=== PATIENT | female | born 1985 | race Caucasian/White ===

== ENCOUNTER 2019-12-08 08:11 | Emergency (ER) | payer OTHER, SELFPAY ==
--- NOTE | 2019-12-08 08:44 | ED.GENADULT ---
HPI - General Adult General Chief complaint: Upper Respiratory Infection Stated complaint: Ear/Nose/Throat/Congestion Time Seen by Provider: 12/08/19 08:59 Source: patient Mode of arrival: ambulatory Limitations: no limitations History of Present Illness HPI narrative: 34-year-old female patient presents to the [facility] with complaints of cold symptoms for the past 8-day with complaints of sore throat. Patient states she is also had a lot of nasal congestion, runny nose, some ear pain. Patient states she has had a slight cough but denies any chest pain or shortness of breath. Denies any abdominal pain, nausea, vomiting or diarrhea. Patient states that she is an active smoker. Denies getting a flu shot this year. Patient denies any or breast-feeding stating that her tubes are tied. Patient states she has been taking NyQuil for symptoms but denies taking anything during the day. Related Data Home Medications Medication Instructions Recorded Confirmed No Home Medications 12/08/19 12/08/19 Allergies Allergy/AdvReac Type Severity Reaction Status Date / Time No Known Allergies Allergy Verified 12/08/19 09:02 Review of Systems Review of Systems: Narrative: CONSTITUTIONAL: Denies fever, chills, or sweats. EYES: Denies visual changes, redness, or discharge. ENT: Positive rhinorrhea, congestion, sore throat, and bilateral otalgia. CARDIOVASCULAR: Denies chest pain, palpitations, or edema. RESPIRATORY: Positive cough, denies dyspnea. GASTROINTESTINAL: Denies abdominal pain, nausea, vomiting, or diarrhea. GENITOURINARY: Denies dysuria or hematuria. SKIN: Denies rash or itching. MUSCULOSKELETAL: Denies back pain, joint pain, or myalgia. NEUROLOGIC: Denies headache, numbness, or weakness. PSYCHIATRIC: Denies anxiety or depression. [facility] Past Medical History Medical History Glaucoma Strep pharyngitis Social History Social History Smoking packs per day: 0.5 Smoking cigarettes per day: 10.0 Years smoked: 15 Smoking pack-years: 7.50 Comments At the time of my signature I agree with nursing past medical history, surgical, social, and family history. There is no relevant family history pertinent to the presenting complaint. Exam Narrative: Exam Narrative: GENERAL: Well-appearing, well-nourished, and in no acute distress. HEAD: Normocephalic, atraumatic. No tenderness noted to frontal maxillary sinuses on palpation. EYES: PERRLA and EOMI. ENT: Nares with erythema and edema noted to the right nare, no rhinorrhea or epistaxis. Mucous membranes moist. Posterior pharynx with slight erythema but no tonsil enlargement no exudates or lesions present. A little bit of postnasal drip noted to the posterior pharynx. NECK: Supple. No lymphadenopathy CHEST: Clear to auscultation. No respiratory distress. Patient able talk in clear complete sentences. No tripoding noted. HEART: Regular rate and rhythm. No murmur heard. Normal peripheral pulses. ABDOMEN: Soft, nontender, nondistended, normal active bowel sounds. EXTREMITIES: Normal range of motion. No edema. SKIN: Warm, dry, no rash. NEURO: No focal deficits. Alert and oriented x3. Course Reevaluation(s) Reevaluation #1: Notify patient that she is negative today for her strep. Discussed with patient this is most likely sinus drainage is causing her symptoms and she can do warm salt water gargles, hot tea and honey and a humidifier in her room at night. Patient states that she is on glaucoma medication discussed with patient I would not recommend any antihistamines due to the fact that it can actually make the glaucoma worse however she could do something such as possibly Flonase has a little bit of a steroid in it to help with the nasal congestion but I would asked the pharmacist and she might be able to take some Coricidin to help with the symptoms but again I
[2019-12-08 08:52] VITALS: BP 120/76; PULSE 90; RESP 16; TEMP 36.8; O2SAT 99
== END 2019-12-08 09:22 | disposition home or self-care (01) ==
PROVIDERS: Emergency Provider Nurse Practitioner Family
DX: J06.9 Acute upper respiratory infection, unspecified (principal); R05 Cough; J02.9 Acute pharyngitis, unspecified; F17.210 Nicotine dependence, cigarettes, uncomplicated; H40.9 Unspecified glaucoma
CPT/HCPCS: 87081; 87880; 99213; G0463

== ENCOUNTER 2023-12-30 12:28 | Emergency (ER) | payer BC, SELFPAY ==
[2023-12-30 12:36] VITALS: BP 156/93; PULSE 70; RESP 20; TEMP 36.4; O2SAT 100
--- NOTE | 2023-12-30 13:23 | ED.HA ---
HPI - Headache General Chief Complaint: Headache Stated Complaint: hp/headaches Time Seen by Provider: 12/30/23 13:24 Source: patient, RN notes reviewed and old records reviewed Mode of arrival: ambulatory Limitations: no limitations History of Present Illness HPI Narrative: 38 year old female who presents to [facility] accompanied by spouse with complaints of headache since last week that won't go away despite taking Tylenol and Ibuprofen, will lessen after medication but never resolves. Patient states school nurse took her blood pressure today and was 150/98. She reports that her PCP was unable to see her today and told her to go to urgent care or ED. She reports that PCP office stated that they can see here on . Patient denies any nausea or vomiting or any dizziness, denies any fevers, muscle pain or any muscle or limb weakness. Patient reports that she has recently bought blood pressure monitor and it has been elevated at home also. MD elicited complaint: headache and other (blood pressure elevation) Onset (ago): week(s) (1) Pain scale (0-10): 6 Treatments prior to arrival: acetaminophen and ibuprofen Related Data Home Medications Medication Instructions Recorded Confirmed latanoprost 0.005 % eye drops 1 drp EACH EYE HS 12/30/23 12/30/23 pantoprazole 40 mg tablet,delayed 40 mg PO DAILY 12/30/23 12/30/23 release Allergies Allergy/AdvReac Type Severity Reaction Status Date / Time No Known Allergies Allergy Verified 12/08/19 09:02 Review of Systems Review of Systems: CONSTITUTIONAL: Denies fever, chills, or sweats. EYES: Denies visual changes, redness, or discharge. ENT: Denies rhinorrhea, congestion, sore throat, or otalgia. CARDIOVASCULAR: Denies chest pain, palpitations, or edema. RESPIRATORY: Denies cough or dyspnea. GASTROINTESTINAL: Denies abdominal pain, nausea, vomiting, or diarrhea. GENITOURINARY: Denies dysuria or hematuria. SKIN: Denies rash or itching. MUSCULOSKELETAL: Denies back pain, joint pain, or myalgia. NEUROLOGIC: Reports headache for one week, denies any numbness, or weakness. PSYCHIATRIC: Denies anxiety or depression. All systems reviewed & are unremarkable except as noted in HPI and below PMFSH Past Medical History Medical History (Updated 12/31/23 @ 12:59 by Sara Blackmon NP) Glaucoma Strep pharyngitis Surgical History Surgical History (Updated 12/31/23 @ 13:00 by Sara Blackmon NP) H/O tubal ligation Previous section x3 Status post left foot surgery Social History Social History (Updated 12/31/23 @ 13:02 by Sara Blackmon NP) Smoking packs per day: 0.5 Smoking cigarettes per day: 10.0 Years smoked: 15 Smoking pack-years: 7.50 Alcohol intake: current Alcohol use details: social Substance use type: does not use Living arrangements: with family Gender identity (if verbalized by the patient): Female Comments At time of signature, agree with nursing past medical, surgical, social and family history. There is no relevant family history pertinent to the presenting complaint Exam Narrative: GENERAL: Well-appearing, well-nourished, obese,and in no acute distress. HEAD: Normocephalic, atraumatic. EYES: PERRLA and EOMI. ENT: Nares clear, no rhinorrhea or epistaxis. Mucous membranes moist.TM's normal, throat pink with no swelling or pain. NECK: Supple. no lymphadenopathy CHEST: Clear to auscultation. No respiratory distress. no cough noted SAO2 100% on room air HEART: Regular rate and rhythm. No murmur heard. Normal peripheral pulses. ABDOMEN: Soft, nontender, nondistended, normal active bowel sounds. EXTREMITIES: Normal range of motion. No edema. SKIN: Warm, dry, no rash. NEURO: No focal deficits. Alert and oriented x3.headache pain for one week, cranial nerves intact with no deficit, no limb weakness or any stated dizziness reported. Course Course Emergency Course: Patient is aware of diagnosis, understands and agr
== END 2023-12-30 13:51 | disposition home or self-care (01) ==
PROVIDERS: Emergency Provider Registered Nurse
DX: R51.9 Headache, unspecified (principal); I10 Essential (primary) hypertension; H40.9 Unspecified glaucoma
CPT/HCPCS: 99203; G0463

== ENCOUNTER 2024-07-06 18:24 | Emergency (ER) | payer BC, OTHER, SELFPAY ==
--- NOTE | ~2024-07-06 | XR_ITS ---
EXAMINATION: XR foot RT min 3V DATE: 07/06/2024 19:06 INDICATION: Right foot pain TECHNIQUE: Dorsoplantar, two oblique and lateral views of the right foot were obtained. COMPARISON: None. FINDINGS: Alignment is normal. No fracture. Joint spaces are normal. No cortical erosions or periosteal reactio n. Soft tissues are unremarkable. IMPRESSION: 1. Negative right foot radiographs. Reviewed, dictated and finalized at location A.
[2024-07-06 18:40] VITALS: BP 133/76; PULSE 83; RESP 18; TEMP 36.6; O2SAT 99
--- NOTE | 2024-07-06 19:06 | ED.LOWEXIN ---
HPI - Extremity Injury (Lower) General Chief Complaint: Extremity Injury, Lower Stated Complaint: Right foot injury Source: patient Mode of arrival: ambulatory Limitations: no limitations History of Present Illness HPI Narrative: 39-year-old female presented for complaint of right foot pain after injury 2 days ago. She states while carrying laundry she missed the last 2 stairs and landed on concrete floor. She states when she landed the foot was flat, she did not roll the ankle. Endorses bilateral flatfeet, and usually applies more pressure to the right foot. She rates the pain 10/10 when ambulating. Denies significant swelling, bruising or deformity. Related Data Home Medications Medication Instructions Recorded Confirmed latanoprost 0.005 % eye drops 1 drp EACH EYE HS 12/30/23 07/06/24 Allergies Allergy/AdvReac Type Severity Reaction Status Date / Time No Known Allergies Allergy Verified 07/06/24 18:50 Review of Systems Review of Systems: CONSTITUTIONAL: Denies body aches, fever, chills CARDIOVASCULAR: Denies chest pain, palpitations, or edema. RESPIRATORY: Denies cough or dyspnea. GASTROINTESTINAL: Denies abdominal pain, nausea, vomiting, or diarrhea. SKIN: Denies rash, itching, or wounds. MUSCULOSKELETAL: reports right foot pain NEUROLOGIC: Denies headache, numbness, tingling, or weakness. All systems reviewed & are unremarkable except as noted in HPI and below PMFSH Past Medical History Medical History Glaucoma Strep pharyngitis Surgical History Surgical History H/O tubal ligation Previous section x3 Status post left foot surgery Social History Social History Smoking packs per day: 0.5 Smoking cigarettes per day: 10.0 Years smoked: 15 Smoking pack-years: 7.50 Alcohol intake: current Alcohol use details: social Substance use type: does not use Living arrangements: with family Gender identity (if verbalized by the patient): Female Comments At time of signature, I have reviewed and agree with nursing past medical, surgical, social and family history unless otherwise noted. Please see nursing chart for further information. There is no relevant family history pertinent to the presenting complaint Exam Narrative: GENERAL: Well-appearing CHEST: Speaks in full sentences. No respiratory distress. HEART: Regular rate and rhythm. Normal and equal peripheral pulses. EXTREMITIES: Right foot has normal strength and sensation, normal range of motion. Mild swelling, mild tender with palpation to plantar surface of foot. No ecchymosis, No open wounds, skin tenting, or obvious deformity; bilateral pes planus. pulse palpable and equal bilaterally, skin warm, dry, pink. Capillary refill less than 3 seconds. SKIN: Warm, dry NEURO: Alert and oriented x3. PSYCH: Normal mood and affect Course Course Emergency Course: Patient is aware of diagnosis, understands and agrees to treatment plan. Anticipatory guidance given. Patient agrees to follow-up as directed and is aware of reasons to seek care at the emergency department. Portions of this record may have been created with voice recognition software Level of Care: Express Care Visit Vital Signs Vital signs: Vital Signs Pulse Rate 83 07/06/24 18:40 Respiratory Rate 18 07/06/24 18:40 Blood Pressure 133/76 07/06/24 18:40 Pulse Oximetry 99 07/06/24 18:40 Pulse Rate 83 07/06/24 18:40 Respiratory Rate 18 07/06/24 18:40 Blood Pressure 133/76 07/06/24 18:40 Pulse Oximetry 99 07/06/24 18:40 Reviewed MDM - Extremity Injury (Lower) MDM Narrative Medical decision making narrative: Discussed physical exam findings And x-ray. miri applied. Advised supportive measures and signs/symptoms to go to the ER. Pt is alfonso
== END 2024-07-06 19:20 | disposition home or self-care (01) ==
PROVIDERS: Emergency Provider Nurse Practitioner Family
DX: M79.671 Pain in right foot (principal); F17.210 Nicotine dependence, cigarettes, uncomplicated; H40.9 Unspecified glaucoma
CPT/HCPCS: 73630; 99213; G0463

== ENCOUNTER 2024-12-30 08:40 | Emergency (ER) | payer BC, OTHER, SELFPAY ==
[2024-12-30 08:57] VITALS: BP 149/86; PULSE 82; RESP 24; TEMP 36.1; O2SAT 97
--- OUTSIDE RECORDS SUMMARY | 2024-12-30 09:08 | XMS_ITS | Encounter Summary ---
Author Organization [facility] Address [address] [place] [address] Phone Care Team Providers Care Diesel Mechanic Name Role Phone Destini Buck MD Unavailable [phone] Alison Dias APRN, DAMAGE INSIDE ADJUSTER Unavailable Chang Wood MD Unavailable Gabby Braxton Primary Care Provider + Encounter Details Date Type Department Care Team (Late st Contact Info) Description 12/20/2024 Results Follow-Up [facility] Medical Group - Family Medicine [facility] [address] [place] [address] Gabby Braxton PAC [address] [place] [address] Social History Tobacco Use Types Packs/Day Years Used Date Smoking Tobacco: Every Day Cigarettes 0.7 44.9 Started: 01/23/1995 Smokeless Tobacco: Never Alcohol Use Standard Drinks/Week Comments Yes 3 (1 standard drink = 0.6 oz pur e alcohol) reports once a month [facility] Utilities Answer Date Recorded In the past 12 months has e electric, gas, oil, or water company threatened to shut off services in your home? No 12/14/2024 Social Connection and Isolation Panel [NHANES] A nswer Date Recorded In a typical week, how many times do you talk on the phone with family, friends, or neighbors? Once a week 12/14/2024 How often do you get together with friends or re latives? Twice a week 12/14/2024 How often do you attend shinto or episcopal serv ices? Never 12/14/2024 Do you belong to any clubs o r organizations such as shinto groups, unions, fraternal or athletic groups, or school groups? No 12/14/2024 How often do you attend meet ings of the clubs or organizations you belong to? Never 12/14/2024 Are you , , di vorced, , never , or living with a partner? 12/14/2024 AUDIT-C Answer Date Recorded Q1: How often do you have a drink containing alc ohol? Monthly or less 12/14/2024 Q2: How many drinks containi ng alcohol do you have on a typical day when you are drinking? 1 or 2 12/14/2024 Q3: How often do you have si x or more drinks on one occasion? Less than monthly 12/14/2024 Overall Financial Resource Strain (CARDIA) Answe r Date Recorded How hard is it for you to pa y for the very basics like food, housing, medical care, and heating? Not hard at all 12/14/2024 PHQ-2 Answer Date Recorded Total Score - Questions 1-9 0 02/2025 [facility] - Occupational Stress Questionnaire Answer Date Recorded Do you feel stress - tense, restless, nervous, or anxious, or unable to sleep at night because your mind is troubled all the time - these days? Not at all 12/14/2024 Exercise Vital Sign Answer Date Recorde d On average, how many days pe r week do you engage in moderate to strenuous exercise (like a brisk walk)? 3 days 12/14/2024 On average, how many minutes do you engage in exercise at this level? 30 min 12/14/2024 Hunger Vital Sign Answer Date Recorded Within the past 12 months, y ou worried that your food would run out before you got the money to buy more. Never true 12/15/19 25 Within the past 12 months, t he food you bought just didn't last and you didn't have money to get more. Never true 12/14/2024 PRAPARE - Transportation Answer Date Re corded In the past 12 months, has l ack of transportation kept you from medical appointments or from getting medications? No 12/2024 In the past 12 months, has l ack of transportation kept you from meetings, work, or from getting things needed for daily living? No 12/14/2024 Housing Stability Vital Sign Answer Jason e Recorded In the last 12 months, was t here a time when you were not able to pay the mortgage or rent on time? No 12/14/2024 Number of Times Moved in the Last Year Not on fi le 12/14/2024 At any time in the past 12 m [facility], were you homeless or living in a long term (including now)? No 12/14/2024 Sexually Active Control Partners Comments Yes Surgical Male Comments No Sex and Gender Information Value Date Recorded Sex Assigned at Not on file Legal Sex Female 9:01 PM CDT Gender Identity Not on file Sexual Orientation Not on file documented as of this encounter Plan of Treatment Upcoming Encounters Date Type Department Care Team (Latest Contact Info) Description 01/04/2025 3:00 PM CDT Outpatient [facility] [address] [place] [address] Gabby Braxton, PAC [address] [place] [address] Discharge Disposition: Discharged to home or Selfcare 03/02/2025 3:45 PM CDT Office Visit [facility] Medical Group - Family Medicine [facility] [address] [place] [address] Gabby Braxton, PAC [address] [place] [address] 06/18/2025 3:30 PM CDT Office Visit [facility] [address] [place] [address] Gabby Braxton PAC [address] [place] [address] documented as of this encounter Visit Diagnoses Not on filedocumented in this encounter Additional Health Concerns Assessment Noted Time PHQ-9 Depression Total Score: 0 12/17/19 25 2:53 PM [employer] INSPECTOR documented as of this encounter Care Teams Diesel Mechanic Relationship Specialty Start Date End Date Gabby Braxton PAC [address] [place] [address] PCP - General Physician Superintendent [employer] 12/16/24 Destini Buck MD [address] [place] [address] Consulting Physician Obstetrics & Gynecology 02/14/17 Alison Dias APRN, DAMAGE INSIDE ADJUSTER [address] [place] [address] Nurse Practitioner Advanced Practice Nurse 08/05/24 Chang Wood MD [address] [address] Consulting Physician General Surgery 09/25/24 documented as of this encounter
--- OUTSIDE RECORDS SUMMARY | 2024-12-30 09:08 | XMS_ITS | Clinical Summary ---
Author Organization [facility] Address [address] [place] [address] Phone Care Team Providers Care Optics Manufacturing Technician Name Role Phone ROSE FIELDS DO Unavailable [phone] Reason for Visit and Chief Complaint [employer] TE[employer]ER EXAM Plan of Treatment No Plan of Treatment Recorded Assessments Includes: Assessments from this encounter No Assessments Recorded Medical Equipment - Implanted Devices Includes: Current Devices No Medical Equipment Recorded Medications Includes: Medications discussed during this encounter and other current Medications Current Medications (continue as prescribed) flagyl 500mg Oral Tablet 08/02/2017 Provider: Diagnosis: BID X7 days no r/f Last Documented On 08/02/2017 9:30AM By Viktoryia Rodriguez MA ; [facility] EQ Complete Multivitamin-Adult Oral Tablet 04/15/2017 Provider: Diagnosis: Last Documented On 7 11:24AM By ABIGAIL FRAGA ; [facility] Xanax 0.25 MG Tablet 07/24/2016 Provider: Diagnosis: Last Documented On 6 9:06AM By ABIGAIL FRAGA ; [facility] Medications Administered Includes: Administered Medications from this encounter No Administered Medications Recorded Results Includes: Results discussed during this encounter No Results Recorded For Specified Dates History of Present Illness Includes: History of Present Illness from this encounter No History of Present Illness Recorded Social History No Social History Recorded - Smoking Status Unknown Medical History Includes: Medical History addressed during this encounter No Medical History Recorded Family History Includes: Family History addressed during this encounter No Family History Recorded Review of Systems Includes: Review of Systems from this encounter No Review of Systems Recorded Mental Status Includes: Mental Status from this encounter No Mental Status Recorded Functional Status Includes: Functional Status from this encounter No Functional Status Recorded Physical Exam Includes: Physical Exam from this encounter No Physical Exam Recorded Allergies Includes: Active Allergies No Known Allergies Clinical Notes Includes: Clinical Notes from this encounter No Clinical Notes Recorded
--- OUTSIDE RECORDS SUMMARY | 2024-12-30 09:08 | XMS_ITS | Clinical Summary ---
Author Organization [facility] Address [address] [place] [address] Phone Care Team Providers Care Vendor Analyst Name Role Phone ROSE FIELDS DO Unavailable [phone] Reason for Visit and Chief Complaint * PHONE CALL Plan of Treatment No Plan of Treatment Recorded Assessments Includes: Assessments from this encounter No Assessments Recorded Medical Equipment - Implanted Devices Includes: Current Devices No Medical Equipment Recorded Medications Includes: Medications discussed during this encounter and other current Medications Current Medications (continue as prescribed) flagyl 500mg Oral Tablet 08/02/2017 Provider: Diagnosis: BID X7 days no r/f Last Documented On 08/02/2017 9:30AM By Viktoriya Rodriguez MA ; [facility] EQ Complete Multivitamin-Adult Oral Tablet 04/15/2017 Provider: Diagnosis: Last Documented On 7 11:24AM By ABIGAIL FRAGA ; [facility] Xanax 0.25 MG Tablet 07/24/2016 Provider: Diagnosis: Last Documented On 6 9:06AM By ABIGAIL FRAGA ; [facility] Past Medications on file Bactrim DS 800-160 MG OR TABS 01/12/2014 - 01/15/2014 Provider: EMMETT ANGEL MD Diagnosis: Last Documented On 01/12/2014 4:39PM By EMMETT ANGEL MD ; [facility] Aristes 5-325 MG OR TABS 12/29/2013 - 01/03/2014 Provide r: EMMETT ANGEL MD Diagnosis: Last Documented On 12/29/2013 11:49AM By EMMETT ANGEL MD ; [facility] Loestrin 24 Fe 1-20 MG-MCG OR TABS 01/29/2012 - 2012 Provider: EMMETT ANGEL MD Diagnosis: has rx savings card Last Documented On 01/29/2012 1:31PM By EMMETT ANGEL MD ; [facility] Ultram 50 MG OR TABS 01/22/2012 - 02/01/2012 Provider: EMMETT ANGEL MD Diagnosis: i-ii po Q6 hours prn pain Last Documented On 01/22/2012 11:03AM By EMMETT ANGEL MD ; [facility] Nystatin-Triamcinolone 74908 0-0.1 UNIT/GM-% EX CREA 06/15/2011 - 06/25/2011 Provider: EMMETT ANGEL MD Diagnosis: Apply to affected area bid Last Documented On 06/15/2011 1:59PM By EMMETT ANGEL MD ; [facility] Terazol 7 0.4% VA CREA 05/07/2011 - 06/06/2011 Provide r: REJI MIRANDA-BC Diagnosis: Insert vaginally q hs x 7 nocs Last Documented On 1 10:11AM By REJI MIRANDA-BC ; [facility] Triveen-Duo DHA 29-1-200 & 4 00 MG OR MISC 02/16/2011 - 11/13/2011 Provider: EMMETT ANGEL MD Diagnosis: please give one on free list if this isn't one, thanks Last Documented On 02/16/2011 3:13PM By EMMETT ANGEL MD ; [facility] Medications Administered Includes: Administered Medications from this [...] Includes: Family History addressed during this encounter Description Last Updated Spouse name: brandee 12/12/2011 Last Documented On 7 2:23PM ; [facility] Family history of hypercholesterolemia f ather 12/12/2011 Last Documented On 7 2:23PM ; [facility] Family history of hypertension father Last Documented On 7 2:23PM ; [facility] Family history unchanged 12/12/2011 Last Documented On 7 2:23PM ; [facility] Family medical history of high blood pre ssure 02/16/2011 Last Documented On 7 2:23PM ; [facility] Review of Systems Includes: Review of Systems from this encounter No Review of Systems Recorded Mental Status Includes: Mental Status from this encounter No Mental Status Recorded Functional Status Includes: Functional Status from this encounter No Functional Status Recorded Physical Exam Includes: Physical Exam from this encounter No Physical Exam Recorded Allergies Includes: Active Allergies No Known Allergies Encounters Encounter Provider Location Date Check-In Time Check-Out Time Diagnosis * PHONE CALL EMMETT ANGEL MD 04/11/2017 2:23PM 11:59PM Clinical Notes Includes: Clinical Notes from this encounter No Clinical Notes Recorded
--- OUTSIDE RECORDS SUMMARY | 2024-12-30 09:09 | XMS_ITS | Encounter Summary ---
Author Organization [facility] Address [address] [place] [address] Phone Care Team Providers Care Integrated Marketing Specialist Name Role Phone Destini Buck MD Unavailable [phone] Alison Dias APRN, INSULATION APPLICATOR Unavailable Chang Wood MD Unavailable Gabby Braxton PAC Primary Care Provider + Reason for Visit * Reason Onset Date Comments Epigastric Pain 12/30/2024 Encounter Details Date Type Department Care Team (Late st Contact Info) Description 12/30/2024 Nurse Triage [facility] [address] [place] [address] Gabby Braxton, PAC [address] [place] [address] Epigastric Pain Social History Tobacco Use Types Packs/Day Years Used Date Smoking Tobacco: Every Day Cigarettes 0.7 44.9 Started: 01/23/1995 Smokeless Tobacco: Never Alcohol Use Standard Drinks/Week Comments Yes 3 (1 standard drink = 0.6 oz pur e alcohol) reports once a month [facility] Utilities Answer Date Recorded In the past 12 months has th e electric, gas, oil, or water company [...] week 12/14/2024 How often do you attend catholic or pentecostalism serv ices? Never 12/14/2024 Do you belong to any clubs o r organizations such as catholic groups, unions, fraternal or athletic groups, or [...] Total Score - Questions 1-9 0 02/2025 [facility] [place] of Occupat ional Health - Occupational Stress [...] any time in the past 12 m [facility], were you homeless or living in a jail (including now)? No 12/14/2024 Sexually Active Control Partners Comments Yes Surgical Male Comments No Sex and Gender Information Value Date Recorded Sex Assigned at Not on file Legal Sex Female 9:01 PM CDT Gender Identity Not on file Sexual Orientation Not on file documented as of this encounter Miscellaneous Notes * Telephone Encounter - Wagner Barron RN - 12/30/2024 7:38 AM CDT SITUATION: epigastric pain BACKGROUND: Patient contacting PCP office. Started to get this severe on Saturday Per chart review, last office visit was 12/16/24 for similar complaints. Hx of a hiatal hernia ASSESSMENT: Symptom Description / Location: Stomach burning Sometimes it hurts so bad I just have to lay down Epigastric pain Sweating I just get really hot No exertion, just sitting in the car became really hot and sweaty. During call patients symptoms had started to improved. Nausea Headache Intermittent Loose stool A couple times a day Pain: 4/10 Fever: Sweats. Treatment / Response: starting pantoprazole today RECOMMENDATION: Caller agreeable to disposition: go to ED/UCC now. Care advice provided per triage guideline. Caller verbalized understanding. Advised for patient to have another adult drive them to the ED. Discussed utilizing [employer] to: find [facility] or [facility] - See care advice and disposition for Guideline. First positive answer recorded, all responses to prior questions were negative. If symptoms increase, change or if new symptoms develop, call your health care provider or call back. Recommendations were based on caller information and is not a diagnosis. Verified and reviewed all triage information with caller. Reason for Disposition MILD TO MODERATE constant pain lasting > 2 hours Protocols used: Abdominal Pain - Female-A-[place] * Telephone Encounter - Alma Valera - 12/30/2024 7:36 AM CDT Symptoms: Abdominal Pain - Female - Not , Headache, Hot Flashes Outcome: Warm transfer to an emergent RN NOW! Reason: Severe pain now The caller accepted this outcome. documented in this encounter Plan of Treatment Upcoming Encounters Date Type Department Care Team (Latest Contact Info) Description 01/04/2025 3:00 PM CDT Outpatient Clinic Visit [facility] [address] [place] [address] Gabby Braxton, PAC [address] [place] [address] Discharge Disposition: Discharged to home or Selfcare 03/02/2025 3:45 PM CDT Office Visit [facility] - [facility] Medicine - [place] [address] [place] [address] Gabby Braxton, PAC [address] [place] [address] 06/18/2025 3:30 PM CDT Office Visit [facility] - [place] [address] [place] [address] Gabby Braxton, PAC [address] [place] [address] documented as of this encounter Visit Diagnoses Not on filedocumented in this encounter Additional Health Concerns Assessment Noted Time PHQ-9 Depression Total Score: 0 12/17/19 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 documented as of this encounter Care Teams Integrated Marketing Specialist Relationship Specialty Start Date End Date Gabby Braxton PAC [address] [place] [address] PCP - General Physician Diving Board Assembler 12/16/24 Destini Buck MD [address] [place] [address] Consulting Physician Obstetrics & Gynecology 02/14/17 Alison Dias APRN, INSULATION APPLICATOR [address] [facility] [place] [address] Nurse Practitioner Advanced Practice Nurse 08/05/24 Chang Wood MD [address] [id number] Consulting Physician General Surgery 09/25/24 documented as of this encounter
--- OUTSIDE RECORDS SUMMARY | 2024-12-30 09:09 | XMS_ITS ---
Author Organization [facility] Address [address] [place] [address] Phone Care Team Providers Care Door Attendant Name Role Phone ROSE FIELDS DO Panfilo Unavailable [phone] Plan of Treatment Findings Encounter Date Ordered Clinical summary pro vided to patient RETURN OB EXAM with REJI REHMAN [facility] 09/23/2013 Last Documented On 3 2:57PM ; [facility] Ordered Clinical summary pro vided to patient RETURN OB EXAM with REJI REHMAN [facility] 08/27/2013 Last Documented On 3 1:51PM ; [facility] Ordered Clinical summary pro vided to patient RETURN OB EXAM with REJI REHMAN NP-BC 07/29/2013 Last Documented On 3 2:58PM ; [facility] Ordered Clinical summary pro vided to patient RETURN OB EXAM with REJI REHMAN NP-BC 06/18/2013 Last Documented On 3 9:45AM ; [facility] Ordered Clinical summary pro vided to patient RETURN OB EXAM with REJI REHMAN NP-BC 04/09/2013 Last Documented On 3 3:34PM ; [facility] D/W pt. that coitus interrup tus is not a reliable method for contraception. Declines all other methods and states does not mind if she gets again. Advised to continue pnv TELECOM SPECIALIST EXAM with REJI REHMAN NP-BC 12/12/2011 Last Documented On 2 1:15PM ; [facility] Instructions to patient Instructions for patient : B reast Self Exam discussed Last Documented On 7 9:30AM ; [facility] Instructions for patient : B reast Self Exam discussed Last Documented On 6 9:23AM ; [facility] Instructions for patient : b reast self exam. Patient to come in for appointment if lump or other changes are felt Last Documented On 6 11:42AM ; [facility] Instructions for patient : B reast Self Exam discussed Last Documented On 5 8:25AM ; [facility] Instructions for patient : B reast Self Exam discussed Last Documented On 4 8:31AM ; [facility] Instructions for patient : B reast Self Exam discussed Last Documented On 2 12:57PM ; [facility] Lose weight Last Documented On 2 12:58PM ; [facility] Safe sex counseling Last Documented On 2 12:58PM ; [facility] Education and Decision Aids were provided during visit for: STD screening offered and de clined Last Documented On 7 9:30AM ; [facility] Patient counseling : Use of oral contraceptives discussed in detail including rare occurrence of heart attack, stroke, and leg clots. Patient understands that smoking increases the risk of serious side effects with any steroid-based contraceptive method Last Documented On 7 11:50AM ; [facility] STD screening offered and de clined Last Documented On 6 9:23AM ; [facility] STD screening offered and de clined Last Documented On 5 8:25AM ; [facility] STD screening offered and de clined Last Documented On 4 8:31AM ; [facility] Patient Education: Daily shala cium and vitamin D Last Documented On 2 12:57PM ; [facility] Patient Education: weight be aring exercise Last Documented On 2 12:57PM ; [facility] control consent review ed and signed Last Documented On 2 12:58PM ; [facility] Assessments Includes: Assessments for all patient encounters Findings Encounter Date Routine pelvic exam TELECOM SPECIALIST EXAM with EMMETT ANGEL MD 07/30/2017 Last Documented On 7 10:02AM ; [facility] Female pelvic pain CONSULTATION with EMMETT YANES MD 04/15/2017 Last Documented On 7 11:56AM ; [facility] Menorrhagia CONSULTATION with EMMETT ANGEL MD 04/15/2017 Last Documented On 7 11:56AM ; [facility] Routine pelvic exam TELECOM SPECIALIST EXAM with EMMETT ANGEL MD 07/24/2016 Last Documented On 6 9:37AM ; [facility] Mastodynia of right breast CONSULTATION with NORRIS ANGEL MD 11/21/2015 Last Documented On 6 11:46AM ; [facility] Menorrhagia CONSULTATION with EMMETT ANGEL MD 11/21/2015 Last Documented On 6 11:46AM ; [facility] Routine pelvic exam TELECOM SPECIALIST EXAM with EMMETT ANGLE MD 06/21/2015 Last Documented On 5 8:36AM ; [facility] Menorrhagia PROBLEM VISIT with EMMETT ANGEL MD 12/20/2014 Last Documented On 5 3:36PM ; [facility] Ovarian cyst TELECOM SPECIALIST EXAM with EMMETT ANGEL MD 0 06/01/2014 Last Documented On 4 8:45AM ; [facility] Routine pelvic exam TELECOM SPECIALIST EXAM with EMMETT ANGEL MD 06/01/2014 Last Documented On 4 8:45AM ; [facility] Normal checkup (6 - 42 wk) RETURN OB EX AM with EMMETT ANGEL MD 10/08/2013 Last Documented On 3 2:01PM ; [facility] Normal checkup (6 - 42 wk) RETURN OB EX AM with EMMETT ANGEL MD 10/02/2013 Last Documented On 3 11:26AM ; [facility] Normal checkup (6 - 42 wk) RETU RN OB EXAM with REJI MIRANDA-GLORIA 09/23/2013 Last Documented On 3 2:57PM ; [facility] Normal checkup (6 - 42 wk) RETURN OB EX AM with EMMETT ANGEL MD 09/08/2013 Last Documented On 3 3:17PM ; [facility] Normal checkup (6 - 42 wk) [Pat ient Encounter] with REJI Heredia SHERIE MIRANDA- 09/07/2013 Last Documented On 3 1:26PM ; [facility] Normal checkup (6 - 42 wk) * PHONE CALL with EMMETT ANGEL MD 08/31/2013 Last Documented On 3 2:21PM ; [facility] Normal checkup (6 - 42 wk) RETU RN OB EXAM with REJI REHMAN BIJU- 08/27/2013 Last Documented On 3 1:51PM ; [facility] Normal checkup (6 - 42 wk) RETURN OB EX AM with EMMETT ANGEL MD 08/13/2013 Last Documented On 3 2:06PM ; [facility] Normal checkup (6 - 42 wk) [Pat ient Encounter] with EMMETT ANGEL MD 07/31/2013 Last Documented On 3 1:19PM ; [facility] Normal checkup (6 - 42 wk) [Pat ient Encounter] with REJI Heredia SHERIE BIJU- 07/30/2013 Last Documented On 3 9:28AM ; [facility] Normal checkup (6 - 42 wk) RETU RN OB EXAM with REJI Heredia SHERIE BIJU- 07/29/2013 Last Documented On 3 2:58PM ; [facility] Normal checkup (6 - 42 wk) RETURN OB EX AM with EMMETT ANGEL MD 07/15/2013 Last Documented On 3 11:08AM ; [facility] Normal checkup (6 - 42 wk) [Pat ient Encounter] with EMMETT ANGEL MD 06/23/2013 Last Documented On 3 1:38PM ; [facility] Normal checkup (6 - 42 wk) RETU RN OB EXAM with REJI A SHERIE BIJU-BC 06/18/2013 Last Documented On 3 9:45AM ; [facility] Normal checkup (6 - 42 wk) * PHONE CALL with EMMETT ANGEL MD 06/16/2013 Last Documented On 3 9:51AM ; [facility] Normal checkup (6 - 42 wk) RETURN OB EX AM with EMMETT ANGEL MD 05/21/2013 Last Documented On 3 3:38PM ; [facility] Normal checkup (6 - 42 wk) RETURN OB EX AM with EMMETT ANGEL MD 05/08/2013 Last Documented On 3 8:43AM ; [facility] Normal checkup (6 - 42 wk) * PH ONE CALL with REJI REHMAN [facility] 04/28/2013 Last Documented On 3 10:22AM ; [facility] complications - an tepartum condition or prior complicated delivery RETURN OB EXAM with CLARISA CARRERA RN [facility] 04/28/2013 Last Documented On 3 4:38PM ; [facility] Normal checkup (6 - 42 wk) RETU RN OB EXAM with REJI REHMAN [facility] 04/09/2013 Last Documented On 3 3:34PM ; [facility] Normal checkup (6 - 42 wk) NEW OB EXAM with EMMETT ANGEL MD 03/10/2013 Last Documented On 3 1:34PM ; [facility] Tubal PROBLEM VISIT with EMMETT ANGEL MD 01/29/2012 Last Documented On 2 1:33PM ; [facility] NORMAL FEMALE EXAM TELECOM SPECIALIST EXAM with REJI Giron [facility] 12/12/2011 Last Documented On 2 1:15PM ; [facility] Nausea POST VISIT with EMMETT LÓPEZ MD 08/28/2011 Last Documented On 1 9:50AM ; [facility] Normal checkup (6 - 42 wk) RETURN OB EX AM with EMMETT ANGEL MD 06/29/2011 Last Documented On 1 2:48PM ; [facility] Normal checkup (6 - 42 wk) RETURN OB EX AM with EMMETT ANGEL MD 06/22/2011 Last Documented On 1 1:10PM ; [facility] Normal checkup (6 - 42 wk) * PHONE CALL with EMMETT ANGEL MD 06/21/2011 Last Documented On 1 2:09PM ; [facility] Normal checkup (6 - 42 wk) RETURN OB EX AM with EMMETT ANGEL MD 06/15/2011 Last Documented On 1 2:00PM ; [facility] Normal checkup (6 - 42 wk) [Pat ient Encounter] with EMMETT ANGEL MD 06/08/2011 Last Documented On 1 11:45AM ; [facility] Normal checkup (6 - 42 wk) RETU RN [facility] 06/[facility] Last Documented On 1 3:24PM ; [facility] Normal checkup (6 - 42 wk) RETURN OB EX AM with EMMETT ANGEL MD 05/22/2011 Last Documented On 1 4:29PM ; [facility] Normal checkup (6 - 42 wk) * PHONE CALL with EMMETT ANGEL MD 05/16/2011 Last Documented On 2 12:05PM ; [facility] Normal checkup (6 - 42 wk) [Pat ient Encounter] [facility] 05/[facility]2011 Last Documented On 1 10:37AM ; [facility] Normal checkup (6 - 42 wk) RETU RN OB [facility]AM [facility] 05/[facility]2011 Last Documented On 1 9:55AM ; [facility] Normal checkup (6 - 42 wk) RETURN OB EX AM with EMMETT ANGEL MD 04/23/2011 Last Documented On 1 3:22PM ; [facility] Normal checkup (6 - 42 wk) * PHONE CALL with EMMETT ANGEL MD 04/19/2011 Last Documented On 1 4:08PM ; [facility] Normal checkup (6 - 42 wk) RETURN OB EX AM with EMMETT ANGEL MD 04/05/2011 Last Documented On 1 8:51AM ; [facility] Normal checkup (6 - 42 wk) RETURN OB EX AM with EMMETT ANGEL MD 03/15/2011 Last Documented On 1 2:01PM ; [facility] Normal checkup (6 - 42 wk) [Pat ient Encounter] with EMMETT ANGEL MD 02/22/2011 Last Documented On 1 8:58AM ; [facility] Normal checkup (6 - 42 wk) NEW OB EXAM with EMMETT ANGEL MD 02/16/2011 Last Documented On 1 3:18PM ; [facility] Instructions Includes: Instructions for all patient encounters Instructions to patient Instructions for patient : B reast Self Exam discussed Last Documented On 7 9:30AM ; [facility] Instructions for patient : B reast Self Exam discussed Last Documented On 6 9:23AM ; [facility] Instructions for patient : b reast self exam. Patient to come in for appointment if lump or other changes are felt Last Documented On 6 11:42AM ; [facility] Instructions for patient : B reast Self Exam discussed Last Documented On 5 8:25AM ; [facility] Instructions for patient : B reast Self Exam discussed Last Documented On 4 8:31AM ; [facility] Instructions for patient : B reast Self Exam discussed Last Documented On 2 12:57PM ; [facility] Lose weight Last Documented On 2 12:58PM ; [facility] Safe sex counseling Last Documented On 2 12:58PM ; [facility] Education and Decision Aids were provided during visit for: STD screening offered and de clined Last Documented On 7 9:30AM ; [facility] Patient counseling : Use of oral contraceptives discussed in detail including rare occurrence of heart attack, stroke, and leg clots. Patient understands that smoking increases the risk of serious side effects with any steroid-based contraceptive method Last Documented On 7 11:50AM ; [facility] STD screening offered and de clined Last Documented On 6 9:23AM ; [facility] STD screening offered and de clined Last Documented On 5 8:25AM ; [facility] STD screening offered and de clined Last Documented On 4 8:31AM ; [facility] Patient Education: Daily shala cium and vitamin D Last Documented On 2 12:57PM ; [facility] Patient Education: weight be aring exercise Last Documented On 2 12:57PM ; [facility] control consent review ed and signed Last Documented On 2 12:58PM ; [facility] Medical Equipment - Implanted Devices Includes: Current and historical Devices No Medical Equipment Recorded Medications Includes: Current and historical Medications Current Medications (continue as prescribed) flagyl 500mg Oral Tablet 08/02/2017 Provider: Diagnosis: BID X7 days no r/f Last Documented On 08/02/2017 9:30AM By Viktoriya Rodriguez MA ; [facility] EQ Complete Multivitamin-Adult Oral Tablet 04/15/2017 Provider: Diagnosis: Last Documented On 7 11:24AM By ABIGAIL FRAGA ; [facility] Xanax 0.25 MG Tablet 07/24/2016 Provider: Diagnosis: Last Documented On 6 9:06AM By ABIGAIL FRAGA ; [facility] Past Medications on file Levonorgest-Eth Estrad 91-Da y 0.1-0.02 & 0.01MG Oral Tablet 04/15/2017 - 07/30/2017 Provider: EMMETT ANGEL MD Diagnosis: One tablet daily starting on first Saturday after next period begins Last Documented On 7 9:25AM By ABIGAIL FRAGA ; [facility] MedroxyPROGESTERone Acetate 150 MG/ML Suspension 11/21/2015 - 07/24/2016 Provider: EMMETT ANGEL MD Diagnosis: i prefilled syringe for IM injection Last Documented On 6 9:05AM By ABIGAIL FRAGA ; [facility] MedroxyPROGESTERone Acetate 150 MG/ML Suspension 12/20/2014 - 11/21/2015 Provider: EMMETT ANGEL MD Diagnosis: i prefilled syringe for IM injection Last Documented On 11/21/2015 11:43AM By EMMETT ANGEL MD ; [facility] Junel FE 1.5 1.5-30 MG-MC G OR TABS 06/01/2014 - 12/20/2014 Provider: EMMETT ANGEL MD Diagnosis: Last Documented On 12/20/2014 3:02PM By TITA FRAGA ; [facility] Bactrim DS 800-160 MG OR TABS 01/12/2014 - 01/15/2014 Provider: EMMETT ANGEL MD Diagnosis: Last Documented On 01/12/2014 4:39PM By EMMETT ANGEL MD ; [facility] Talpa 5-325 MG OR TABS 12/29/2013 - 01/03/2014 Provide r: EMMETT ANGEL MD Diagnosis: Last Documented On 12/29/2013 11:49AM By EMMETT ANGEL MD ; [facility] Junel FE 1.5 1.5-30 MG-MCG OR TABS 12/25/2013 - Provider: Diagnosis: Last Documented On 06/01/2014 8:42AM By EMMETT ANGEL MD ; [facility] Complete-RF 90-1 MG OR TABS 10/16/2013 - 11/14 Provider: Diagnosis: Last Documented On 11/24/2013 3:53PM By MOON JONES ; [facility] Procardia XL 30 MG OR TB24 10/02/2013 - 11/24/2013 Pro vider: EMMETT ANGEL MD Diagnosis: Last Documented On 11/24/2013 3:53PM By MOON JONES ; [facility] Ferrous Sulfate 325 (65 Fe) MG OR TBEC 07/16/2013 - Provider: Diagnosis: pt is planning to buy otc. therapist occupational Last Documented On 11/24/2013 3:53PM By MOON JONES ; [facility] Procardia XL 30 MG OR TB24 05/08/2013 - 10/02/2013 Pro vider: EMMETT ANGEL MD Diagnosis: Last Documented On 10/02/2013 11:24AM By EMMETT ANGEL MD ; [facility] Triveen-Duo DHA 29-1-200 & 4 00 MG OR MISC 03/10/2013 - 10/16/2013 Provider: EMMETT ANGEL MD Diagnosis: Please substitute free PNV if this isn't one, th anks Last Documented On 10/16/2013 9:56AM By MIKAYLA LANGSTON LPN ; [facility] Loestrin 24 Fe 1-20 MG-MCG OR TABS 01/29/2012 - 2012 Provider: EMMETT ANGEL MD Diagnosis: has rx savings card Last Documented On 01/29/2012 1:31PM By EMMETT ANGEL MD ; [facility] Ultram 50 MG OR TABS 01/22/2012 - 02/01/2012 Provider: EMMETT ANGEL MD Diagnosis: i-ii po Q6 hours prn pain Last Documented On 01/22/2012 11:03AM By EMMETT ANGEL MD ; [facility] Loestrin 24 Fe 1-20 MG-MCG OR TABS 07/23/2011 - 2011 Provider: EMMETT ANGEL MD Diagnosis: Start Sunday 08/05 please (M ay substitute if not covered well) Last Documented On 12/12/2011 1:02PM By HALIE FRAGA ; [facility] Nystatin-Triamcinolone 02116 0-0.1 UNIT/GM-% EX CREA 06/15/2011 - 06/25/2011 Provider: EMMETT ANGEL MD Diagnosis: Apply to affected area bid Last Documented On 06/15/2011 1:59PM By EMMETT ANGEL MD ; [facility] Terazol 7 0.4% VA CREA 05/07/2011 - 06/06/2011 Provide r: REJI MIRANDA-BC Diagnosis: Insert vaginally q hs x 7 nocs Last Documented On 1 10:11AM By REJI MIRANDA-BC ; [facility] Triveen-Duo DHA 29-1-200 & 4 00 MG OR MISC 02/16/2011 - 11/13/2011 Provider: EMMETT ANGEL MD Diagnosis: please give one on free list if this isn't one, thanks Last Documented On 02/16/2011 3:13PM By EMMETT ANGEL MD ; [facility] Medications Administered Includes: Administered Medications in patient's chart Medications Administered Diagnosis Date Pro vider Fluzone Preservative Free IM SUSP VACCIN FOR INFLUENZA 07/29/2013 REJI REHMAN [facility]- BC Last Documented On 3 2:48PM By HALIE FRAGA ; [facility] medroxyPROGESTERone Acetate 150 MG/ML IM SUSP 12/27/2014 EMMETT ANGEL MD left glut - pt tolerated well Last Documented On 5 9:19AM By TITA FRAGA ; [facility] Results Includes: Results from 12/31/2023 through 12/30/2024 No Results Recorded For Specified Dates History of Present Illness History of Present Illness not supported for this document type No History of Present Illness Recorded Social History Description Last Updated In monogamous relationship 07/30/2017 Last Documented On 7 10:02AM ; [facility] Smoking status : Former smoker 7 Last Documented On 7 10:02AM ; [facility] Non-smoker 04/15/2017 Last Documented On 7 11:56AM ; [facility] Procedures and Surgical History Surgical History Last Updated History of tubal ligation 04/15/2017 Last Documented On 7 11:56AM ; [facility] Surgical / procedural history left foot 2013 12/20/2014 Last Documented On 5 3:36PM ; [facility] History of surgery left foot surg 2012 Last Documented On 3 2:57PM ; [facility] Medical History Includes: Medical History in patient's chart Description Last Updated LMP: 07/15/2017 07/30/2017 Last Documented On 7 10:02AM ; [facility] Aborta 1 07/30/2017 Last Documented On 7 10:02AM ; [facility] Contraception: tubal 07/30/2017 Last Documented On 7 10:02AM ; [facility] 4 07/30/2017 Last Documented On 7 10:02AM ; [facility] Last mammogram date: 12/05/2016 7 Last Documented On 7 10:02AM ; [facility] Last pap smear date 06/01/2014 07/30/2017 Last Documented On 7 10:02AM ; [facility] Para 3 07/30/2017 Last Documented On 7 10:02AM ; [facility] Status post tubal ligation 07/30/2017 Last Documented On 7 10:02AM ; [facility] 1 living children 09/23/2013 Last Documented On 3 2:57PM ; [facility] weight: 6lb 14 oz 09/23/2013 Last Documented On 3 2:57PM ; [facility] section 09/23/2013 Last Documented On 3 2:57PM ; [facility] Delivery date 09/23/2013 Last Documented On 3 2:57PM ; [facility] Duration of labor: 10 09/23/2013 Last Documented On 3 2:57PM ; [facility] Gestational age: 37 09/23/2013 Last Documented On 3 2:57PM ; [facility] History of the : 1 09/23/2013 Last Documented On 3 2:57PM ; [facility] Type of delivery: LTCS 09/23/2013 Last Documented On 3 2:57PM ; [facility] Family History Includes: Family History in patient's chart Description Last Updated Spouse name: brandee 12/12/2011 Last Documented On 2 1:15PM ; [facility] Family history of hypercholesterolemia f ather 12/12/2011 Last Documented On 2 1:15PM ; [facility] Family history of hypertension father Last Documented On 2 1:15PM ; [facility] Family history unchanged 12/12/2011 Last Documented On 2 1:15PM ; [facility] Family medical history of high blood pre ssure 02/16/2011 Last Documented On 1 3:18PM ; [facility] Review of Systems Review of Systems not supported for this document type No Review of Systems Recorded Mental Status No Mental Status Recorded Functional Status No Functional Status Recorded Physical Exam Physical Exam not supported for this document type No Physical Exam Recorded Immunizations Includes: Immunizations in patient's chart Vaccine Dose # Date Site Reaction(s) Status Source Influenza (Quadrivalent)36 mo.& older PF 0.5ml (SD) 1 07/29/2013 Left Arm Complete (Administered) [facility] Last Documented On 3 2:49PM ; [facility] Allergies Includes: Active, inactive, and resolved Allergies No Known Allergies Clinical Notes Includes: Signed Clinical Notes starting from 11/02/2022 No Clinical Notes Recorded
--- OUTSIDE RECORDS SUMMARY | 2024-12-30 09:09 | XMS_ITS | Clinical Summary ---
Author Organization [facility] Address [address] [facility] [place] [address] [place] [address] Phone Care Team Providers Care Telecommunicator Name Role Phone Destini Buck MD Unavailable [phone] Alison Dias APRN, JAVA SOFTWARE ARCHITECT Unavailable Chang Wood MD Unavailable Gabby Braxton [facility] Primary Care Provider + Allergies No known active allergies Medications latanoprost (XALATAN) 0.005 % Solution Place 1 Drop in affected eye(s) nightly. One drop in each eye at bedtime Active tirzepatide-we ight management (Zepbound) 2.5 MG/0.5ML Solution Auto-injectorI ndications:Frank recio, Class III, BMI 40-49.9 (morbid obesity) (HCC) 2.5 mg by Subcutaneous route once a week. 2 mL 5 Active pantoprazole (PROTONIX) 40 MG Tablet Delayed Response Take 1 Tablet by mouth daily. 90 Tablet 5 Active ibuprofen (MOTRIN) 800 MG Tablet take 1 tablet by mouth three times daily as needed for pain 4 025 Discontin ued(Med List Clean Up) Active Problems Problem Noted Date Diagnosed Date Other specified glaucoma 12/16/2024 Hiatal hernia 09/15/2024 Iron deficiency anemia due to chronic blood loss 09/17/2018 Menorrhagia 09/17/2018 Constipation 09/17/2018 Major depressive disorder, recurrent episode, mo derate 06/26/2016 Bronchitis 12/14/2015 Fatty liver Overview (10/18/2015): D/S Body mass index (BMI) exceeds 25 Encounters Date Type Department Care Team Description 12/30/2024 Nurse Triage [facility] [address] [place] [address] Gabby Braxton PAC Epigastric Pain 12/24/2024 3:45 PM CDT - 12/24/2024 11:59 PM CDT Hospital Encounter [facility] Diagnostic Radiology [address] [place] [address] Gabby Braxton PAC Discharge Disposition: Discharged to home or Selfcare 12/24/2024 Travel 12/24/2024 Transcribe Orders [facility] Sleep Lab [address] [place] [address] Gabby Braxton PAC Has daytime drowsiness (Primary Dx) 12/20/2024 [facility] [place] [address] Gabby Braxton PAC 12/16/2024 3:30 PM SUSTAINABLE DESIGN COORDINATOR [facility] [place] [address] Gabby Braxton PAC Obesity, Class III, BMI 40-49.9 (morbid obesity) (HCC) (Primary Dx); Hiatal hernia; Screening for diabetes mellitus; Paresthesia; Screening cholesterol level; Laboratory exam ordered as part of routine (Adult) medical examination; Screening for cardiovascular condition; Need for hepatitis C screening test; Dysphasia; Has daytime drowsiness Discharge Disposition: Discharged to home or Selfcare 12/14/2024 Travel 12/09/2024 Telephone [facility] [address] [place] [phone] Gabby Braxton PAC 10/02/2024 [facility] [address] [place] [phone] Thierry Romano MD Results from Last 3 Months Immunizations Immunization Administration Dates Next Due Sars-cov-2 (Covid-19) Vaccine, Unspecified 10/11 TB Skin Test 07/31/2016 TDAP Vaccine 04/21/2024,11/14/2011 Family History Medical History Relation Name Comments Diabetes Brother Isaiah Hypertension Brother Isaiah Alcohol Abuse Father Josr Hypertension Father Josr Cancer Maternal Aunt Reny Cirrhosis Maternal Grandfather Cancer Maternal Grandmother Nishi jacky m of the esophagus Alcohol Abuse Mother Martha Asthma Mother Martha Cancer Mother Martha lung, colon, ki dney, and breast Chronic Obstructive Pulmonar y Disease Mother Martha Skin Cancer Paternal Grandfather maligna nt neoplasm of the skin Cerebral Anuerysm Paternal Grandmother Relation Name Status Comments Brother Isaiah Father Josr Alive Maternal Aunt Reny Alive Maternal Grandfather Maternal Grandmother Nishi Mother Martha Alive Paternal Grandfather Paternal Grandmother Social History Tobacco Use Types Packs/Day Years Used Date Smoking Tobacco: Every Day Cigarettes 0.7 44.9 Started: 01/23/1995 Smokeless Tobacco: Never Tobacco Cessation:Ready to Q uit: Yes; Counseling Given: Not Answered Alcohol Use Standard Drinks/Week Comments Yes 3 (1 standard drink = 0.6 oz pur e alcohol) reports once a month [facility] Utilities Answer Date Recorded In the past 12 months has e [id number], gas, oil, or water company threatened to [...] week 12/14/2024 How often do you attend baptism or latter day serv ices? Never 12/14/2024 Do you belong to any clubs o r organizations such as baptism groups, unions, fraternal or athletic groups, or [...] Total Score - Questions 1-9 0 02/2025 [facility] - Occupational Stress [...] any time in the past 12 m [facility], were you homeless or living in a fdc (including now)? No 12/14/2024 Sexually Active Control Partners Comments Yes Surgical Male Comments No Sex and Gender Information Value Date Recorded Sex Assigned at Not on file Legal Sex Female 9:01 PM CDT Gender Identity Not on file Sexual Orientation Not on file Last Filed Vital Signs Vital Sign Reading Time Taken Comments Blood Pressure 130/88 12/16/2024 2:52 PM SUSTAINABLE DESIGN COORDINATOR Pulse 76 12/16/2024 2:52 PM SUSTAINABLE DESIGN COORDINATOR Temperature 36.1 C (96.9 F) 12/16/2024 2:52 PM SUSTAINABLE DESIGN COORDINATOR Respiratory Rate 16 12/16/2024 2:52 PM SUSTAINABLE DESIGN COORDINATOR Oxygen Saturation 99% 12/16/2024 2:52 PM SUSTAINABLE DESIGN COORDINATOR Inhaled Oxygen Concentration - - Weight 130.2 kg (287 lb) 12/16/2024 2:52 PM SUSTAINABLE DESIGN COORDINATOR Height 165.1 cm (5' 5 ) 12/16/2024 2:52 PM SUSTAINABLE DESIGN COORDINATOR Body Mass Index 47.76 12/16/2024 2:52 PM SUSTAINABLE DESIGN COORDINATOR Plan of Treatment Upcoming Encounters Date Type Department Care Team (Latest Contact Info) Description 01/04/2025 3:00 PM CDT Outpatient Clinic Visit [facility] Sleep Lab [address] [place] [phone] Gabby Braxton, PAC [address] [place] [address] Discharge Disposition: Discharged to home or Selfcare 03/02/2025 3:45 PM CDT [facility] [place] [address] Fox Ewa, PAC [address] [place] [address] 06/18/2025 3:30 PM CDT [facility] [place] [address] Gabby Braxton, PAC [address] [place] [address] Health Maintenance Due Date Last Done Comments Hepatitis B Immunization (1 of 3 - 19+ 3-dose series) 2002 Pneumococcal Immunization Combined (1 of 2 - PCV) 2002 HPV/Cotest 2013 Cervical Cancer Screening (CCS) 09/01/2021 Pap Smear 09/01/2021 09/01/2018 Influenza Immunization (#1) 2024 SARS-COV-2 Immunization ( season) 2024 11/14/2021, 10/11/2021, 10/08/2021 Mammogram 04/17/2025 04/17/2024, 07/16, 09/17/2018 Td Immunization Every 10 Years (Adults With 1 Tdap) 04/21/2034 04/21/2024, 11/14/2011 Respiratory Syncytial Virus (RSV) Immunization (Adult) (1 - 1-dose 75+ series) 2058 Discussion re Starting/Frequency of Mammograms Completed 04/17/2024, 08/12/2020, 09/17/2018, Additional history exists Hepatitis C Virus (HCV) Screening Completed 12/16/2024 Meningococcal Immunization (ACWY) Aged Out No longer eligible based on patient's age to complete this topic Rotavirus Immunization Aged Out No lo nger eligible based on patient's age to complete this topic Procedures Procedure Name Priority Date/Time Associated Diagnosis Comments XR ANKLE 3 OR MORE VIEWS LEFT Routine 12/24/2024 3:54 PM CDT Left ankle pain, unspecified chronicity CBC WITH AUTO DIFFERENTIAL Routine 12/16/2024 4:13 PM SUSTAINABLE DESIGN COORDINATOR Laboratory exam ordered as part of routine (Adult) medical examination FOOD: SHRIMP IGE Routine 12/16/2024 4:13 PM SUSTAINABLE DESIGN COORDINATOR Dysphasia HEPATITIS C ANTIBODY Routine 12/16/2024 4:13 PM SUSTAINABLE DESIGN COORDINATOR Need for hepatitis C screening test LIPOPROTEIN (A) Routine 12/16/2024 4:13 PM SUSTAINABLE DESIGN COORDINATOR Screening for cardiovascular condition LIPID PANEL Routine 12/16/2024 4:13 PM SUSTAINABLE DESIGN COORDINATOR Screening cholesterol level FOLIC ACID (FOLATE) Routine 12/16/2024 4 :13 PM SUSTAINABLE DESIGN COORDINATOR Paresthesia VITAMIN B12 Routine 12/16/2024 4:13 PM SUSTAINABLE DESIGN COORDINATOR Paresthesia THYROID STIMULATING HORMONE (TSH) Routine 12/16/2024 4:13 PM SUSTAINABLE DESIGN COORDINATOR Laboratory exam ordered as part of routine (Adult) medical examination HEMOGLOBIN A1C W/ ESTIMATED GLUCOSE Routine 12/16/2024 4:13 PM SUSTAINABLE DESIGN COORDINATOR Screening for diabetes mellitus COMPLETE BLOOD COUNT (CBC) WITH DIFF Routine 12/16/2024 4:13 PM SUSTAINABLE DESIGN COORDINATOR Laboratory exam ordered as part of routine (Adult) medical examination CMP (COMPREHENSIVE METABOLIC PANEL) Routine 12/16/2024 4:13 PM SUSTAINABLE DESIGN COORDINATOR Laboratory exam ordered as part of routine (Adult) medical examination EMBER SCREENING BILATERAL DIGITAL W CAD W MELISSA Routine 04/17/2024 1:26 PM CDT Encounter for screening mammogram for malignant neoplasm of breast PATHOLOGY CYTOLOGY TOP TRIMMER Routine 09/01/2018 from Last 3 Months or Most Recently Relevant to Health Maintenance Results * XR ANKLE 3 OR MORE VIEWS LEFT (12/24/2024 3:54 PM CDT) Anatomical Region Laterality Modality LOWER EXTREMITY, ankle Left Digital R adiography 12/30/2024 7:09 AM CDT Impressions 12/30/2024 7:12 AM CDT IMPRESSION: Prior attempted triple hindfoot arthrodesis. Definitive bridging bone at the calcaneocuboid component is not identified. Mild medial left ankle osteoarthritis with a small effusion. Narrative 12/30/2024 7:12 AM CDT EXAM DESCRIPTION: XR ANKLE 3 OR MORE VIEWS LEFT REASON FOR STUDY: pain and swelling in left ankle x 5 days. NKI. pain is primarily on lateral aspect of ankle. Hx of Fx with surgery to repair in 2012 FINDINGS: Three views left ankle submitted with comparison 12/24/2017, 12/10/2017. Prior attempted triple hindfoot arthrodesis is noted. Definitive bridging bone at the calcaneocuboid component is not identified. Medial ankle osteoarthritis is present. Small ankle effusion. Midfoot osteoarthritis. THIS IS AN ELECTRONICALLY VERIFIED FINAL REPORT 12/30/2024 7:09 AM - Electronically signed by Filippo Zheng M.D. MF: [id number] Report ID: [id number] Reading Location: [id number] Procedure Note Filippo Zheng MD - 12/30/2024 EXAM DESCRIPTION: XR ANKLE 3 OR MORE VIEWS LEFT REASON FOR STUDY: pain and swelling in left ankle x 5 days. NKI. pain is primarily on lateral aspect of ankle. Hx of Fx with surgery to repair in 2012 FINDINGS: Three views left ankle submitted with comparison 12/24/2017, 12/10/2017. Prior attempted triple hindfoot arthrodesis is noted. Definitive bridging bone at the calcaneocuboid component is not identified. Medial ankle osteoarthritis is present. Small ankle effusion. Midfoot osteoarthritis. THIS IS AN ELECTRONICALLY VERIFIED FINAL REPORT 12/30/2024 7:09 AM - Electronically signed by Filippo Zheng M.D. MF: [id number] Report ID: [id number] Reading Location: [id number] IMPRESSION: Prior attempted triple hindfoot arthrodesis. Definitive bridging bone at the calcaneocuboid component is not identified. Mild medial left ankle osteoarthritis with a small effusion. Gabby Braxton [facility] IMG DIAGNOSTIC ORDERABLE S Final Result * HEMOGLOBIN A1C W/ ESTIMATED GLUCOSE (12/16/2024 4:13 PM SUSTAINABLE DESIGN COORDINATOR) HGB-A1C 5.2 4.0 - 6.0 % 12/16/2024 5:18 PM SUSTAINABLE DESIGN COORDINATOR [facility] Est Average Glucose 102.5 mg/dL 12/16/2024 5:18 PM SUSTAINABLE DESIGN COORDINATOR [facility] Blood Venipuncture / Unknown 12/16/2024 4:13 PM SUSTAINABLE DESIGN COORDINATOR 12/16/2024 4:14 PM SUSTAINABLE DESIGN COORDINATOR Narrative [facility] - 12/16/2024 5:18 PM SUSTAINABLE DESIGN COORDINATOR HEMOGLOBIN A1C: DIABETIC PATIENTS: WELL-CONTROLLED: 6.2 - 7.0 INTERMEDIATE WELL-CONTROLLED: 7.0 - 9.0 POORLY-CONTROLLED: >9.0 Specimens containing greater than 5% of Hemoglobin F may result in lower than expected % HbA1C results. Gabby Braxton [facility] CHEMISTRY ORDERABLES Fin al Result [facility] [address] [place] [address] * CBC WITH AUTO DIFFERENTIAL (12/16/2024 4:13 PM SUSTAINABLE DESIGN COORDINATOR) WBC 10.14 4.00 - 12.00 10(3)/mcL 12/16/2024 5:05 PM SUSTAINABLE DESIGN COORDINATOR [facility] RBC 5.18 3.80 - 5.30 10(6)/mcL 12/16/2024 5:05 PM SUSTAINABLE DESIGN COORDINATOR [facility] HEMOGLOBIN (HGB) 14.7 12.0 - 15.8 g/dL 12/16/2024 5:05 PM SUSTAINABLE DESIGN COORDINATOR [facility] HEMATOCRIT (HCT) 44.3 36.0 - 47.0 % 12/16/2024 5:05 PM [facility] MCV 85.5 82.0 - 96.0 fL 12/16/2024 5:05 PM [facility] MCH 28.4 26.0 - 34.0 pg 12/16/2024 5:05 PM [facility] MCHC 33.2 31.0 - 36.0 g/dL 12/16/2024 5:05 PM [facility] PLATELET COUNT 247 140 - 440 10(3)/mcL 12/16/2024 5:05 PM [facility] RDW 13.1 11.8 - 15.5 % 12/16/2024 5:05 PM [facility] MPV 10.3 9.7 - 12.4 fL 12/16/2024 5:05 PM [facility] NEUTROPHILS 69.6 47.0 - 73.0 % 12/16/2024 5:05 PM [facility] LYMPHOCYTES 22.0 18.0 - 42.0 % 12/16/2024 5:05 PM [facility] MONOCYTES 4.9 4.0 - 12.0 % 12/16/2024 5:05 PM [facility] EOSINOPHILS 3.0 0.0 - 5.0 % 12/16/2024 5:05 PM [facility] BASOPHILS 0.5 0.0 - 1.0 % 12/16/2024 5:05 PM [facility] ABSOLUTE NEUTROPHILS 7.06 1.60 - 7.70 10(3)/mcL 12/16/2024 5:05 PM [facility] ABSOLUTE LYMPHOCYTES 2.23 1.30 - 3.20 10(3)/mcL 12/16/2024 5:05 PM [facility] ABSOLUTE MONOCYTES 0.50 0.20 - 1.00 10(3)/mcL 12/16/2024 5:05 PM [facility] ABSOLUTE EOSINOPHIL 0.30 0.00 - 0.40 10(3)/mcL 12/16/2024 5:05 PM [facility] ABSOLUTE BASOPHILS 0.05 0.00 - 0.10 10(3)/mcL 12/16/2024 5:05 PM SUSTAINABLE DESIGN COORDINATOR [facility] NRBC PER 100 WBC 0 12/17/19 5:05 PM SUSTAINABLE DESIGN COORDINATOR [facility] Blood Venipuncture / Unknown 12/16/2024 4:13 PM SUSTAINABLE DESIGN COORDINATOR 12/16/2024 4:14 PM SUSTAINABLE DESIGN COORDINATOR us Ewa Fritcher PAC HEMATOLOGY ORDERABLES Fi nal Result [facility] [address] [place] [address] * VITAMIN B12 (12/16/2024 4:13 PM SUSTAINABLE DESIGN COORDINATOR) VITAMIN B12 400 213 - 816 pg/mL 12/16/2024 6:01 PM SUSTAINABLE DESIGN COORDINATOR [facility] Blood Venipuncture / Unknown 12/16/2024 4:13 PM SUSTAINABLE DESIGN COORDINATOR 12/16/2024 4:14 PM SUSTAINABLE DESIGN COORDINATOR us Ewa Fritcher PAC CHEMISTRY ORDERABLES Fin al Result Performing Organization Address City/[facility]/ZIP Co de Phone Number [facility] [address] [place] [address] * THYROID STIMULATING HORMONE (TSH) (12/16/2024 4:13 PM SUSTAINABLE DESIGN COORDINATOR) TSH 2.293 0.300 - 5.000 mIU/L 12/16/2024 5:40 PM SUSTAINABLE DESIGN COORDINATOR [facility] Blood Venipuncture / Unknown 12/16/2024 4:13 PM SUSTAINABLE DESIGN COORDINATOR 12/16/2024 4:14 PM SUSTAINABLE DESIGN COORDINATOR us Gabby Lararickier PAC CHEMISTRY ORDERABLES Fin al Result [facility] [address] [place] [address] * LIPOPROTEIN (A) (12/16/2024 4:13 PM SUSTAINABLE DESIGN COORDINATOR) LIPOPROTEIN(a) 7 <31 mg/dL 12/17/2024 3:08 PM SUSTAINABLE DESIGN COORDINATOR [facility] Blood Venipuncture / Unknown 12/16/2024 4:13 PM SUSTAINABLE DESIGN COORDINATOR 12/16/2024 4:14 PM SUSTAINABLE DESIGN COORDINATOR us Gabby Braxton PAC CHEMISTRY ORDERABLES Fin al Result [facility] [address] [place] [address], * LIPID PANEL (12/16/2024 4:13 PM SUSTAINABLE DESIGN COORDINATOR) CHOLESTEROL 98 <200 mg/dL 12/16/2024 5:26 PM SUSTAINABLE DESIGN COORDINATOR [facility] TRIGLYCERIDES 90 <150 mg/dL 12/16/2024 5:26 PM SUSTAINABLE DESIGN COORDINATOR [facility] HDL CHOLESTEROL 43 >40 mg/dL 5:26 PM SUSTAINABLE DESIGN COORDINATOR [facility] LDL 37 <130 mg/dL 12/16/2024 5:26 PM SUSTAINABLE DESIGN COORDINATOR [facility] VLDL 18 10 - 50 mg/dL 12/16/2024 5:26 PM SUSTAINABLE DESIGN COORDINATOR [facility] CHOL/HDL RATIO 2.3 0.0 - 4.4 12/16/2024 5:26 PM SUSTAINABLE DESIGN COORDINATOR [facility] NON-HDL CHOLESTEROL 55 <130 mg/dL 12/16/2024 5:26 PM SUSTAINABLE DESIGN COORDINATOR [facility] IS THE PATIENT REQUIRED TO BE FASTING? No 12/16/2024 5:26 PM SUSTAINABLE DESIGN COORDINATOR [facility] Blood Venipuncture / Unknown 12/16/2024 4:13 PM SUSTAINABLE DESIGN COORDINATOR 12/16/2024 4:14 PM SUSTAINABLE DESIGN COORDINATOR us Ewaovidio Braxton PAC CHEMISTRY ORDERABLES Fin al Result [facility] [address] [facility] [place] [address] * HEPATITIS C ANTIBODY (12/16/2024 4:13 PM SUSTAINABLE DESIGN COORDINATOR) hepatitis C antibody 0.13 <1 S/CO 12/17/2024 3:09 PM SUSTAINABLE DESIGN COORDINATOR [facility] Comment: Signal/Cutoff ratio < 0.79 is Nondetected Signal/Cutoff ratio 0.80-0.99 is Grayzone Signal/Cutoff ratio > 0.99 is Detected Supplemental assays are recommended if signal/cutoff ratio is >/=1.00. Signal/cutoff ratio result >/= 5.00 is 97% predictive of positivity for recombinant immunoblot assay (RIBA) and will be reported to the [place] [facility] as required. Blood Venipuncture / Unknown 12/16/2024 4:13 PM SUSTAINABLE DESIGN COORDINATOR 12/16/2024 4:14 PM SUSTAINABLE DESIGN COORDINATOR Gabby Braxton PAC CHEMISTRY ORDERABLES Fin al Result Performing Organization Address [facility]/ZIP Co de Phone Number [facility] [address] [place] [address], * FOOD: SHRIMP IGE (12/16/2024 4:13 PM SUSTAINABLE DESIGN COORDINATOR) Pathologist [facility] FOOD SHRIMP <0.10 <0.35 kU/L 12/18/2024 1:29 PM SUSTAINABLE DESIGN COORDINATOR [facility] Blood Venipuncture / Unknown 12/16/2024 4:13 PM SUSTAINABLE DESIGN COORDINATOR 12/16/2024 4:14 PM SUSTAINABLE DESIGN COORDINATOR Narrative [facility] - 12/18/2024 1:29 PM SUSTAINABLE DESIGN COORDINATOR IgE Class kU/L Level of IgE AB 0 <0.35 Absent/undetectable 1 0.35-0.70 Low Level 2 0.71-3.50 Moderate Level 3 3.51-17.50 High Level 4 17.51-50.00 Very High Level 5 50.01-100.00 Very High Level 6 >100.00 Very High Level Gabby Braxton PAC CHEMISTRY ORDERABLES Fin al Result [facility] [address] [place] [address], * FOLIC ACID (FOLATE) (12/16/2024 4:13 PM SUSTAINABLE DESIGN COORDINATOR) FOLATE 7.8 7.0 - 31.4 ng/mL 12/16/2024 6:01 PM SUSTAINABLE DESIGN COORDINATOR [facility] IS THE PATIENT REQUIRED TO BE FASTING? No 12/16/2024 6:01 PM SUSTAINABLE DESIGN COORDINATOR [facility] Blood Venipuncture / Unknown 12/16/2024 4:13 PM SUSTAINABLE DESIGN COORDINATOR 12/16/2024 4:14 PM SUSTAINABLE DESIGN COORDINATOR Gabby Laradaryn PAC CHEMISTRY ORDERABLES Fin al Result Performing Organization Address City/[facility]/ZIP Co de Phone Number [facility] [address] [place] [address] * CMP (COMPREHENSIVE METABOLIC PANEL) (12/16/2024 4:13 PM SUSTAINABLE DESIGN COORDINATOR) SODIUM 139 136 - 145 mmol/L 12/16/2024 5:26 PM SUSTAINABLE DESIGN COORDINATOR [facility] POTASSIUM 4.1 3.5 - 5.1 mmol/L 12/16/2024 5:26 PM SUSTAINABLE DESIGN COORDINATOR [facility] CHLORIDE 104 98 - 107 mmol/L 12/16/2024 5:26 PM SUSTAINABLE DESIGN COORDINATOR [facility] CO2, VENOUS 24 22 - 30 mmol/L 12/16/2024 5:26 PM SUSTAINABLE DESIGN COORDINATOR [facility] ANION GAP 15.1 <18.0 mmol/L 12/16/2024 5:26 PM SUSTAINABLE DESIGN COORDINATOR [facility] GLUCOSE 82 70 - 99 mg/dL 12/16/2024 5:26 PM SUSTAINABLE DESIGN COORDINATOR [facility] BUN 9 5 - 18 mg/dL 12/16/2024 5:26 PM [facility] CREATININE, BLOOD 0.78 0.60 - 1.00 mg/dL 12/16/2024 5:26 PM [facility] BUN/CREATININE RATIO 12 12 - 20 ratio 12/16/2024 5:26 PM [facility] TOTAL PROTEIN 7.6 6.0 - 8.0 g/dL 12/16/2024 5:26 PM [facility] ALBUMIN 4.4 3.5 - 5.0 g/dL 12/16/2024 5:26 PM [facility] A/G RATIO 1.4 1.0 - 2.2 12/16/2024 5:26 PM [facility] CALCIUM 9.8 8.7 - 10.5 mg/dL 12/16/2024 5:26 PM [facility] T BILI 0.4 0.2 - 1.2 mg/dL 12/16/2024 5:26 PM [facility] SGOT (AST) 34 <43 U/L 12/16/2024 5:26 PM [facility] SGPT (ALT) 52 <56 U/L 12/16/2024 5:26 PM [facility] ALKALINE PHOSPHATASE 90 40 - 150 U/L 12/16/2024 5:26 PM [facility] IS THE PATIENT REQUIRED TO BE FASTING? No 12/16/2024 5:26 PM [facility] GFR, ESTIMATED >60 >=60 12/16/2024 5:26 PM [facility] Comment: Creatinine Clearance is the preferred criteria for selecting drug dose adjustments in renally impaired patients. The GFR is provided as additional pertinent clinical information. GFR is reported in mL/min/1.73 sq m. Calculation based on the Chronic Kidney Disease Epidemiology Collaboration (CKD- EPI) equation refit without adjustment for race. GFR, EST. >60 >=60 025 5:26 PM [facility] GFR, EST. NONAFRICAN >60 >=60 12/16/2024 5:26 PM [facility] Blood Venipuncture / Unknown 12/16/2024 4:13 PM SUSTAINABLE DESIGN COORDINATOR 12/16/2024 4:14 PM SUSTAINABLE DESIGN COORDINATOR us Gabby Braxton PAC CHEMISTRY ORDERABLES Fin al Result [facility] [address] [place] [address] * EMBER SCREENING BILATERAL DIGITAL W CAD W MELISSA (04/17/2024 1:26 PM CDT) Anatomical Region Laterality Modality breast Bilateral Mammography 04/17/2024 2:27 PM CDT Narrative 04/20/2024 10:48 AM CDT - EMBER SCREENING BILATERAL DIGITAL W CAD W MELISSA BILATERAL DIGITAL SCREENING MAMMOGRAM 3D/2D WITH CAD WITH MEDIOLATERAL OBLIQUE CRANIOCAUDAL: 04/17/2024 The study was acquired using digital technology and interpreted from soft copy. Current study was also evaluated with Sense HealthD version 7.2. 2D digital mammographic views, as well as 3D digital tomosynthesis were performed in the CC and MLO projections. CLINICAL: Routine screening. Patient has no complaints. She reports a 20 pound weight increase. No personal history of cancer. Mother with postmenopausal breast cancer. COMPARISONS: Comparison is made to exams dated: 08/12/2020, 09/17/2018, and 12/05/2016 [facility]. BREAST TISSUE:The tissue of both breasts is predominantly fatty. FINDINGS: No significant masses, calcifications, or other findings are seen in either breast. There has been no significant interval change. IMPRESSION: BI-RAD 1 NEGATIVE There is no mammographic evidence of malignancy. A 1 year screening mammogram is recommended. A letter will be sent to the patient with these results. The patient will be entered into a reminder system with a target due date of 1 year for her next screening exam. Electronically signed by: Sander forrest/carlyn:04/17/2024 18:02:07 Skein Inspector(s): RT Nazario(R)(M), [facility] letter sent: Normal Exam Reading location: [place] BI-RADS: 1 Negative Procedure Note Sander Juarez MD - 04/20/2024 - EMBER SCREENING BILATERAL DIGITAL W CAD W MELISSA BILATERAL DIGITAL SCREENING MAMMOGRAM 3D/2D WITH CAD WITH MEDIOLATERAL OBLIQUE CRANIOCAUDAL: 04/17/2024 The study was acquired using digital technology and interpreted from soft copy. Current study was also evaluated with ICAD version 7.2. 2D digital mammographic views, as well as 3D digital tomosynthesis were performed in the CC and MLO projections. CLINICAL: Routine screening. Patient has no complaints. She reports a 20 pound weight increase. No personal history of cancer. Mother with postmenopausal breast cancer. COMPARISONS: Comparison is made to exams dated: 08/12/2020, 09/17/2018, and 12/05/2016 [facility]. BREAST TISSUE:The tissue of both breasts is predominantly fatty. FINDINGS: No significant masses, calcifications, or other findings are seen in either breast. There has been no significant interval change. IMPRESSION: BI-RAD 1 NEGATIVE There is no mammographic evidence of malignancy. A 1 year screening mammogram is recommended. A letter will be sent to the patient with these results. The patient will be entered into a reminder system with a target due date of 1 year for her next screening exam. Electronically signed by: Sander forrest/carlyn:04/17/2024 18:02:07 Skein Inspector(s): RT Nazario(R)(M), [facility] letter sent: Normal Exam Reading location: [place] BI-RADS: 1 Negative us Domonique Nicole APRN, JAVA SOFTWARE ARCHITECT IMG MAMMO ORDERABLES Final Result * PATHOLOGY CYTOLOGY TOP TRIMMER (09/01/2018) Specimen of unknown material (specimen) us Not On File Provider PATHOLOGY/CYTOLOGY ORDERABL ES Final Result from Last 3 Months or Most Recently Relevant to Health Maintenance Insurance [facility] [[email or web address]] [facility] Care Teams Telecommunicator Relationship Specialty Start Date End Date Gabby Braxton PAC [address] [place] [address] PCP - General Physician Public Safety Dispatcher 12/16/24 Destini Buck MD [address] [facility] [address] [place] [address] Consulting Physician Obstetrics & Gynecology 02/14/17 Alison Dias APRN, JAVA SOFTWARE ARCHITECT [address] [place] [address] Nurse Practitioner Advanced Practice Nurse 08/05/24 Chang Wood MD [address] [address] Consulting Physician General Surgery 09/25/24
--- OUTSIDE RECORDS SUMMARY | 2024-12-30 09:09 | XMS_ITS ---
Care Plan - [facility] Created on: December 30, 2024 TRAVIS CAMERON : 1985 Sex: Female Author Organization [facility] Address [address] [place] [address] Phone Care Team Providers Care Spinner Box Name Role Phone ROSE FIELDS DO Unavailable [phone]
--- OUTSIDE RECORDS SUMMARY | 2024-12-30 09:09 | XMS_ITS | Clinical Summary ---
Author Organization [facility] Address [address] [place] [address] Phone Care Team Providers Care Cleater Name Role Phone ROSE FIELDS DO Unavailable [phone] Reason for Visit and Chief Complaint The Chief Complaint is: Consult to discuss options to help with periods Plan of Treatment Contraception: s/p BTL, although she regrets that decision. She looked into options of IVF or tubal reversal and has decided against pursuing any of that and says she's thankful for the three children she has Menorrhagia: we discussed options, and we agreed to try Q 3 month cycling OCP. Although she likely won't try to carry another child, we did discuss that an ablation or hysterectomy would render her incapable of carrying another child, but medications will not limit that potential. Start OCP first Saturday after next period begins. Since her annual visit is scheduled in 3 months, we'll see how she's doing at that time - Last Documented On 04/15/2017 11:56AM ; [facility] Education and Decision Aids were provided during visit for: Patient counseling : Use of oral contraceptives discussed in detail including rare occurrence of heart attack, stroke, and leg clots. Patient understands that smoking increases the risk of serious side effects with any steroid-based contraceptive method Last Documented On 11:50AM ; [facility] Assessments Includes: Assessments from this encounter Findings - Female pelvic pain - Last Documented On 04/15/2017 11:56AM ; [facility] - Menorrhagia - Last Documented On 04/15/2017 11:56AM ; [facility] Instructions Includes: Instructions from this encounter Education and Decision Aids were provided during visit for: Patient counseling : Use of oral contraceptives discussed in detail including rare occurrence of heart attack, stroke, and leg clots. Patient understands that smoking increases the risk of serious side effects with any steroid-based contraceptive method Last Documented On 7 11:50AM ; [facility] Medical Equipment - Implanted Devices Includes: Current Devices No Medical Equipment Recorded Medications Includes: Medications discussed during this encounter and other current Medications New / Renewed during this visit EMMETT ANGEL MD on 04/15/2017 Levonorgest-Eth Estrad 91-Da y 0.1-0.02 & 0.01MG Oral Tablet Provider: EMMETT TAY MD day supply: 91 tablet, 1 refills Diagnosis: One tablet daily starting on first Saturday after next period begins Pharmacy: [facility] [address] [facility] , [facility], [phone] - Last Documented On 7 9:25AM By ABIGAIL FRAGA ; [facility] Current Medications (continue as prescribed) flagyl 500mg Oral Tablet 08/02/2017 Provider: Diagnosis: BID X7 days no r/f Last Documented On 08/02/2017 9:30AM By Viktoriya Rordiguez MA ; [facility] EQ Complete Multivitamin-Adult Oral Tablet 04/15/2017 Provider: Diagnosis: Last Documented On 7 11:24AM By ABIGAIL FRAGA ; [facility] Xanax 0.25 MG Tablet 07/24/2016 Provider: Diagnosis: Last Documented On 6 9:06AM By ABIGAIL FRAGA ; [facility] Past Medications on file Bactrim DS 800-160 MG OR TABS 01/12/2014 - 01/15/2014 Provider: EMMETT ANGEL MD Diagnosis: Last Documented On 01/12/2014 4:39PM By EMMETT ANGEL MD ; [facility] [place] 5-325 MG OR TABS 12/29/2013 - 01/03/2014 Provide r: EMMETT ANGEL MD Diagnosis: Last Documented On 12/29/2013 11:49AM By EMMETT ANGEL MD ; [facility] Loestrin 24 Fe 1-20 MG-MCG OR TABS 01/29/2012 - 2012 Provider: EMMETT ANGEL MD Diagnosis: has rx savings card Last Documented On 01/29/2012 1:31PM By EMMETT ANGEL MD ; [facility] Ultram 50 MG OR TABS 01/22/2012 - 02/01/2012 Provider: EMMETT ANGEL MD Diagnosis: i-ii po Q6 hours prn pain Last Documented On 01/22/2012 11:03AM By EMMETT ANGEL MD ; [facility] Nystatin-Triamcinolone 42808 0-0.1 UNIT/GM-% EX CREA 06/15/2011 - 06/25/2011 Provider: EMMETT ANGEL MD Diagnosis: Apply to affected area bid Last Documented On 06/15/2011 1:59PM By EMMETT ANGEL MD ; [facility] Terazol 7 0.4% VA CREA 05/07/2011 - 06/06/2011 Provide r: REJI MIRANDA-BC Diagnosis: Insert vaginally q hs x 7 nocs Last Documented On 1 10:11AM By REJI MIRANDA-BC ; [facility] Triveen-Duo DHA 29-1-200 & 4 00 MG OR MISC 02/16/2011 - 11/13/2011 Provider: EMMETT ANGEL MD Diagnosis: please give one on free list if this isn't one, thanks Last Documented On 02/16/2011 3:13PM By EMMETT ANGEL MD ; [facility] Medications Administered Includes: Administered Medications from this encounter No Administered Medications Recorded Vital Signs Includes: Vital Signs from this encounter Vital Name 04/15/2017 11:21A 04/15/2017 11: 19A Blood Pressure Sitting (mmHg) 118/74 Pulse Rate-Sitting (bpm) 72 Height (in) 65 65 Weight (lb) 256.4 Body Mass Index (kg/m2) 42.7 Body Surface Area (m2) 2.2 Last Documented: On 04/15/2017 11:26A M ; [facility] On 04/15/2017 11:20AM ; [facility] Results Includes: Results discussed during this encounter No Results Recorded For Specified Dates History of Present Illness Includes: History of Present Illness from this encounter DIPAK CAMERON is a 32 year old female. - Patient has tried hormonal management about a year ago stopped depo provera. - Pelvic pain BLQ constant, no relationship to periods. - Periods every 2-3 weeks since 02/11/2017 - Menstrual bleeding usually lasts 6 days - Soaking tampon or pad Q 2 hours - No bleeding between periods - H/o anemia - No h/o blood transfusions Social History Description Last Updated Alcohol use: 2 drinks or less per day on ce a month 04/15/2017 Last Documented On 7 11:56AM ; [facility] Cigarette smoking quit a couple years ag o 04/15/2017 Last Documented On 7 11:56AM ; [facility] Non-smoker 04/15/2017 Last Documented On 7 11:56AM ; [facility] Sexually active 04/15/2017 Last Documented On 7 11:56AM ; [facility] Smoking status : Former smoker Last Documented On 7 11:56AM ; [facility] Procedures and Surgical History Includes: Procedures from this encounter Procedures Code Diagnosis Performing Provider Service L ocation Service Date Treatment options discussed including medical management, endometrial ablation, and hysterectomy Last Documented On 7 11:50AM ; [facility] Clinical summary provided to patient Last Documented On 7 11:50AM ; [facility] Surgical History Last Updated History of tubal ligation 04/15/2017 Last Documented On 7 11:56AM ; [facility] Medical History Includes: Medical History addressed during this encounter Description Last Updated LMP: 03/24/2017 04/15/2017 Last Documented On 7 11:56AM ; [facility] Aborta 1 04/15/2017 Last Documented On 7 11:56AM ; [facility] Contraception: tubal 04/15/2017 Last Documented On 7 11:56AM ; [facility] 4 04/15/2017 Last Documented On 7 11:56AM ; [facility] Last mammogram date: 12/05/2016 7 Last Documented On 7 11:56AM ; [facility] Last pap smear date 06/01/2014 04/15/2017 Last Documented On 7 11:56AM ; [facility] Para 3 04/15/2017 Last Documented On 7 11:56AM ; [facility] Family History Includes: Family History addressed during this encounter Description Last Updated Spouse name: brandee 12/12/2011 Last Documented On 7 11:19AM ; [facility] Family history of hypercholesterolemia f ather 12/12/2011 Last Documented On 7 11:19AM ; [facility] Family history of hypertension father Last Documented On 7 11:19AM ; [facility] Family history unchanged 12/12/2011 Last Documented On 7 11:19AM ; [facility] Family medical history of high blood pre ssure 02/16/2011 Last Documented On 7 11:19AM ; [facility] Review of Systems Includes: Review of Systems from this encounter Systemic: No recent weight change. Head: No headache. Eyes: No vision problems. Otolaryngeal: No hoarseness. Cardiovascular: No chest pain or discomfort and no palpitations. Pulmonary: No shortness of breath. Gastrointestinal: Normal appetite. No nausea, no vomiting, and no hematochezia. No diarrhea and no constipation. Genitourinary: No nocturia. No urinary loss of control and no dysuria. Musculoskeletal: No arthralgias and no localized joint swelling. Neurological: No tingling and no numbness. Psychological: No anxiety, no depression, and no sleep disturbances. Mental Status Includes: Mental Status from this encounter Description No anxiety Functional Status Includes: Functional Status from this encounter No Functional Status Recorded Physical Exam Includes: Physical Exam from this encounter Allergies Includes: Active Allergies No Known Allergies Encounters Encounter Provider Location Date Check-In Time Check-Out Time Diagnosis CONSULTATION EMMETT ANGEL MD [facility] WASHER MEAT 04/15/20 17 11:16AM 11:49AM Menorrhagia,F emale Pelvic Pain Clinical Notes Includes: Clinical Notes from this encounter No Clinical Notes Recorded
--- OUTSIDE RECORDS SUMMARY | 2024-12-30 09:09 | XMS_ITS | Clinical Summary ---
Author Organization [facility] Address [address] [place] [address] Phone Care Team Providers Care Birth Certificate Clerk Name Role Phone ROSE FIELDS DO Unavailable [phone] Reason for Visit and Chief Complaint The Chief Complaint is: Annual exam--c/o burning right breast pain/possible yeast infection Plan of Treatment Contraception: s/p BTL although she still regrets that decision and is in process of getting a divorce. She's aware of options of tubal reversal and IVF h/o heavy periods but recently improved. We discussed options of Nuvaring, patch, depo provera, or Mirena IUD if she wants treatment Affirm done due to itching and discharge - Last Documented On 07/30/2017 10:02AM ; [facility] Instructions to patient Instructions for patient : B reast Self Exam discussed Last Documented On 7 9:30AM ; [facility] Education and Decision Aids were provided during visit for: STD screening offered and de clined Last Documented On 7 9:30AM ; [facility] Assessments Includes: Assessments from this encounter Findings - Routine pelvic exam - Last Documented On 07/30/2017 10:02AM ; [facility] Instructions Includes: Instructions from this encounter Instructions to patient Instructions for patient : B reast Self Exam discussed Last Documented On 7 9:30AM ; [facility] Education and Decision Aids were provided during visit for: STD screening offered and de clined Last Documented On 7 9:30AM ; [facility] Medical Equipment - Implanted Devices Includes: Current Devices No Medical Equipment Recorded Medications Includes: Medications discussed during this encounter and other current Medications Discontinued / Stopped on this date EMMETT ANGEL MD on 04/15/2017 Levonorgest-Eth Estrad 91-Da y 0.1-0.02 & 0.01MG Oral Tablet Provider: EMMETT ANGEL MD Diagnosis: Last Documented On 7 9:25AM By ABIGAIL FLORES Giovanna ; [facility] Current Medications (continue as prescribed) flagyl 500mg Oral Tablet 08/02/2017 Provider: Diagnosis: BID X7 days no r/f Last Documented On 08/02/2017 9:30AM By Viktoriya Rodriguez MA ; [facility] EQ Complete Multivitamin-Adult Oral Tablet 04/15/2017 Provider: Diagnosis: Last Documented On 7 11:24AM By ABIGAIL FRAGA ; [facility] Xanax 0.25 MG Tablet 07/24/2016 Provider: Diagnosis: Last Documented On 6 9:06AM By ABIGAIL FLORES Giovanna ; [facility] Past Medications on file Bactrim DS 800-160 MG OR TABS 01/12/2014 - 01/15/2014 Provider: EMMETT ANGEL MD Diagnosis: Last Documented On 01/12/2014 4:39PM By EMMETT ANGEL MD ; [facility] [place] 5-325 MG OR TABS 12/29/2013 - 01/03/2014 Provide r: EMMETT ANGEL MD Diagnosis: Last Documented On 12/29/2013 11:49AM By EMMETT ANGEL MD ; [facility] Loestrin 24 Fe 1-20 MG-MCG OR TABS 01/29/2012 - 2012 Provider: EMMETT ANGEL MD Diagnosis: has rx savings card Last Documented On 01/29/2012 1:31PM By EMMETT ANGEL MD ; [facility] Ultram 50 MG OR TABS 01/22/2012 - 02/01/2012 Provider: EMMETT ANGEL MD Diagnosis: i-ii po Q6 hours prn pain Last Documented On 01/22/2012 11:03AM By EMMETT ANGEL MD ; [facility] Nystatin-Triamcinolone 76400 0-0.1 UNIT/GM-% EX CREA 06/15/2011 - 06/25/2011 Provider: EMMETT ANGEL MD Diagnosis: Apply to affected area bid Last Documented On 06/15/2011 1:59PM By EMMETT ANGEL MD ; [facility] Terazol 7 0.4% VA CREA 05/07/2011 - 06/06/2011 Provide r: REJI MIRANDA-BC Diagnosis: Insert vaginally q hs x 7 nocs Last Documented On 1 10:11AM By REJI MIRANDA-BC ; [facility] Triveen-Duo DHA 29-1-200 & 4 00 MG OR MISC 02/16/2011 - 11/13/2011 Provider: EMMETT ANGEL MD Diagnosis: please give one on free list if this isn't one, thanks Last Documented On 02/16/2011 3:13PM By EMMETT ANGEL MD ; [facility] Medications Administered Includes: Administered Medications from this encounter No Administered Medications Recorded Vital Signs Includes: Vital Signs from this encounter Vital Name 07/30/2017 09:22A 07/30/2017 09: 21A Blood Pressure Sitting (mmHg) 138/80 Pulse Rate-Sitting (bpm) 68 Height (in) 65 65 Weight (lb) 261.6 Body Mass Index (kg/m2) 43.5 Body Surface Area (m2) 2.2 Last Documented: On 07/30/2017 9:27AM ; [facility] On 07/30/2017 9:21AM ; [facility] Results Includes: Results discussed during this encounter No Results Recorded For Specified Dates History of Present Illness Includes: History of Present Illness from this encounter DIPAK CAMERON is a 32 year old female. - No unusual bleeding periods have been better just once a month lasting about 6 days, first 3 are heavy then exerciser horse. She tried OCP for a bit but couldn't remember it daily so she stopped. - No pelvic pain. - Vaginal discharge and itching. Social History Description Last Updated In monogamous relationship 07/30/2017 Last Documented On 7 10:02AM ; [facility] Smoking status : Former smoker 7 Last Documented On 7 10:02AM ; [facility] Procedures and Surgical History Includes: Procedures from this encounter Procedures Code Diagnosis Performing Provider Service L ocation Service Date Clinical summary provided to patient Last Documented On 7 9:29AM ; [facility] cervical Pap smear 04993 Last Documented On 7 9:30AM ; [facility] Medical History Includes: Medical History addressed during this encounter Description Last Updated LMP: 07/15/2017 07/30/2017 Last Documented On 7 10:02AM ; [facility] Aborta 1 07/30/2017 Last Documented On 7 10:02AM ; [facility] Contraception: tubal 07/30/2017 Last Documented On 7 10:02AM ; [facility] 4 07/30/2017 Last Documented On 7 10:02AM ; [facility] Last mammogram date: 12/05/2016 7 Last Documented On 7 10:02AM ; [facility] Last pap smear date 06/01/2014 07/30/2017 Last Documented On 7 10:02AM ; [facility] Para 3 07/30/2017 Last Documented On 7 10:02AM ; [facility] Status post tubal ligation 07/30/2017 Last Documented On 7 10:02AM ; [facility] Family History Includes: Family History addressed during this encounter Description Last Updated Spouse name: brandee 12/12/2011 Last Documented On 7 9:21AM ; [facility] Family history of hypercholesterolemia f ather 12/12/2011 Last Documented On 7 9:21AM ; [facility] Family history of hypertension father Last Documented On 7 9:21AM ; [facility] Family history unchanged 12/12/2011 Last Documented On 7 9:21AM ; [facility] Family medical history of high blood pre ssure 02/16/2011 Last Documented On 7 9:21AM ; [facility] Review of Systems Includes: Review of Systems [...] Location Date Check-In Time Check-Out Time Diagnosis PRODUCTION INSPECTOR EXAM EMMETT ANGEL MD [facility] HUMAN RELATIONS MANAGER 7 9:21AM 10:01AM Routine Pelvic Exam Clinical Notes Includes: Clinical Notes from this encounter No Clinical Notes Recorded
--- OUTSIDE RECORDS SUMMARY | 2024-12-30 09:09 | XMS_ITS | Clinical Summary ---
Author Organization [facility] Address [address] [place] [address] Phone Care Team Providers Care Obstetrician Name Role Phone ROSE FIELDS DO Unavailable [phone] Reason for Visit and Chief Complaint * [...] 08/02/2017 9:30AM By Viktoriya Rodriguez MA ; [facility] EQ Complete Multivitamin-Adult Oral Tablet 04/15/2017 Provider: Diagnosis: Last Documented On 7 11:24AM By ABIGAIL FRAGA ; [facility] Xanax 0.25 MG Tablet 07/24/2016 Provider: Diagnosis: Last Documented On 6 9:06AM By ABIGAIL FRAGA ; [facility] Medications Administered Includes: Administered Medications from [...] Diagnosis * PHONE CALL EMMETT ANGEL MD 08/01/2017 3:14PM 11:59PM Clinical Notes Includes: Clinical Notes from this encounter No Clinical Notes Recorded
--- NOTE | 2024-12-30 09:13 | ED_ITS ---
HPI - General Adult General Chief complaint: Abdominal Pain Stated complaint: stomach/head pain Time Seen by Provider: 12/30/24 09:15 Source: patient, RN notes reviewed and old records reviewed Mode of arrival: ambulatory Limitations: no limitations History of Present Illness HPI narrative: 39 year old female who presents to [facility] care with complaints of upper epigastric pain and burning for the past 3 days and also has some central chest pain and some flutters in her chest also. Patient reports that she has had some diaphoresis and also some generalized headache pain since Saturday. Patient reports that she saw her PCP on the and was prescribed Protonix and just started the medication today. Patient denies any nausea, or any radiation of pain to arm, jaw, or back or any feelings of dyspnea. MD complaint: headache, diaphoresis,upper epigastric burning, central chest pain,flutters Onset (ago): day(s) (3) Location: head (headache), chest (pain and flutters) and abdomen (upper epigastric burning) Severity: moderate Quality: burning and aching Treatments prior to arrival: other (protonix) Related Data Home Medications ?Medication ?Instructions ?Recorded ?Confirmed ?Last Taken ?Type latanoprost 0.005 % eye drops 1 drp EACH EYE HS 12/30/23 07/06/24 Unknown History pantoprazole 40 mg tablet,delayed mg PO 12/30/24 Unknown History release Allergies Allergy/AdvReac Type Severity Reaction Status Date / Time No Known Allergies Allergy Verified 12/30/24 09:32 Review of Systems Review of Systems: CONSTITUTIONAL: Denies fever, chills, or sweats. EYES: Denies visual changes, redness, or discharge. ENT: Denies rhinorrhea, congestion, sore throat, or otalgia. CARDIOVASCULAR: Intermittent central chest pain, positive for palpitations, positive for episodes of diaphoresis RESPIRATORY: Denies cough or dyspnea. GASTROINTESTINAL:upper epigastric burning sensation to abdominal, no nausea, vomiting, or diarrhea. GENITOURINARY: Denies dysuria or hematuria. SKIN: Denies rash or itching. MUSCULOSKELETAL: Denies back pain, joint pain, or myalgia. NEUROLOGIC: Reports headache,no numbness or weakness PSYCHIATRIC: Reports history of anxiety or depression. All systems reviewed & are unremarkable except as noted in HPI and below [facility] Past Medical History Medical History (Updated 12/31/24 @ 09:24 by Sara Blackmon NP) Hiatal hernia Strep pharyngitis Glaucoma Surgical History Surgical History H/O tubal ligation Status post left foot surgery Previous section x3 Social History Social History Smoking packs per day: 0.5 Smoking cigarettes per day: 10.0 Years smoked: 15 Smoking pack-years: 7.50 Alcohol intake: current Alcohol use details: social Substance use type: does not use Living arrangements: with family Gender identity (if verbalized by the patient): Female Comments At time of signature, agree with nursing past medical, surgical, social and family history. There is no relevant family history pertinent to the presenting complaint Exam Narrative: GENERAL: Well-appearing, well-nourished, and in some acute distress. HEAD: Normocephalic, atraumatic. EYES: PERRLA and EOMI. ENT: Nares clear, no rhinorrhea or epistaxis. Mucous membranes moist.TM's normal, throat pink with no swelling NECK: Supple. no lymphadenopathy CHEST: Clear to auscultation. No respiratory distress. no cough noted SAO2 97% on room air HEART: Regular rate and rhythm. No murmur heard. Normal peripheral pulses. ABDOMEN: Soft, nontender on palpation,, nondistended, normal active bowel sounds.epigastric burning stated EXTREMITIES: Normal range of motion. No edema. SKIN: Warm, dry, no rash. NEURO: No focal deficits. Alert and oriented x3. Course Course Emergency Course: Patient is aware of diagnosis, understands and agrees to treatment plan.? Anticipatory guidance given.? Patient agrees to follow-up as directed and is aware of reasons to seek care at the emergency department. Portions of this record may have been created with voice recognition software Level of Care: Express Care Visit Vital Signs Vital signs: Vital Signs Temperature 36.1 C L 12/30/24 08:57 Pulse Rate 82 12/30/24 08:57 Respiratory Rate 24 H 12/30/24 08:57 Blood Pressure 149/86 H 12/30/24 08:57 Pulse Oximetry 97 12/30/24 08:57 Oxygen Delivery Room Air 12/30/24 08:57 Temperature 36.1 C L 12/30/24 08:57 Pulse Rate 82 12/30/24 08:57 Respiratory Rate 24 H 12/30/24 08:57 Blood Pressure 149/86 H 12/30/24 08:57 Pulse Oximetry 97 12/30/24 08:57 Oxygen Delivery Room Air 12/30/24 08:57 Reviewed Transfer Transfered to: [facility]) Transportation: Other (By private car with spouse) Transfer rationale: Patient has complaints of chest discomfort, palpitation and diaphoresis needs further testing. Accepting physician: Josefina Transfer comments: Transfer to Ed at [facility] per private car with spouse. Medical Decision Making MDM Narrative Medical decision making narrative: [id number] Call placed to ED at [facility] with reports of present complaints, VS, PMH and testing results to [facility] Dr Josefina Mata accepting physician for transfer. Differential Diagnosis Differential Diagnosis: epigastric pain and burning, central chest pain, headache, episodes of diaphoresis, palpitations Medical Records Medical records reviewed: Yes I reviewed the external patient's medical records. Vital Signs Vital Signs: Vital Signs Temperature 36.1 C L 12/30/24 08:57 Pulse Rate 82 12/30/24 08:57 Respiratory Rate 24 H 12/30/24 08:57 Blood Pressure 149/86 H 12/30/24 08:57 Pulse Oximetry 97 12/30/24 08:57 Oxygen Delivery Room Air 12/30/24 08:57 Temperature 36.1 C L 12/30/24 08:57 Pulse Rate 82 12/30/24 08:57 Respiratory Rate 24 H 12/30/24 08:57 Blood Pressure 149/86 H 12/30/24 08:57 Pulse Oximetry 97 12/30/24 08:57 Oxygen Delivery Room Air 12/30/24 08:57 reviewed ECG Data EKG #1: Attestation: I personally reviewed and interpreted this ECG as follows: ECG completion date: 12/30/24 Prior ECG tracings: not available for review Interpretation: Sinus Rhythm rate 63, MN 188 ms, QRS 98ms, QT 400 ms EKG Interpretation: normal rate and sinus rhythm Critical Care Time Critical Care Time Critical Care Time: No Discharge Plan Discharge Clinical Impression: Epigastric pain, Heart palpitations Chest pain Qualifiers: Chest pain type: unspecified Qualified Code(s): R07.9 - Chest pain, unspecified Patient Disposition: Acute Care Hospital Condition: Stable Patient Language: Ecuadorean Prescriptions: No Action pantoprazole 40 mg tablet,delayed release (DR/EC) PO latanoprost 0.005 % drops 1 drp EACH EYE HS Follow-up/Referrals: Fox,MÓNICA Saavedra [Primary Care Provider] - Time of Disposition: 10:12 Quality [place] Scale Eyes: Open Verbal: Oriented and Alert Motor: Follows Commands Ariella Coma Total Score: 15
--- NOTE | 2024-12-30 09:13 | ECG_ITS ---
Test Date: 2024-12-30 09:33:53 Measurements Intervals [place] Rate: 63 P: 43 MI: 188 QRS: 39 QRSD: 98 T: 33 QT: 400 QTc: 409 Interpretive Statements SINUS RHYTHM NORMAL ECG No previous ECG available for comparison Electronically Signed On 12-30-2024 12:29:47 CDT by Antonio Padilla M.D.
--- OUTSIDE RECORDS SUMMARY | 2024-12-30 09:17 | XMS_ITS | Clinical Summary ---
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
--- OUTSIDE RECORDS SUMMARY | 2024-12-30 09:17 | XMS_ITS | Clinical Summary ---
Author Organization [facility] Address [address] [place] [address] Phone Care Team Providers Care Pest Technician Name Role Phone ROSE FIELDS DO Unavailable [phone] Reason for Visit and Chief Complaint * [...] r/f Last Documented On 08/02/2017 9:30AM By Vkitoriya Rodriguez MA ; [facility] EQ Complete Multivitamin-Adult Oral Tablet 04/15/2017 Provider: Diagnosis: Last Documented On 7 11:24AM By ABIGAIL FRAGA ; [facility] Xanax 0.25 MG Tablet 07/24/2016 Provider: Diagnosis: Last Documented On 6 9:06AM By ABIGAIL FRAGA ; [facility] Past Medications on file Bactrim DS 800-160 MG OR TABS 01/12/2014 - 01/15/2014 Provider: EMMETT ANGEL MD Diagnosis: Last Documented On 01/12/2014 4:39PM By EMMETT ANGEL MD ; [facility] [place] 5-325 MG OR TABS 12/29/2013 - 01/03/2014 Provide r: EMMETT ANGEL MD Diagnosis: Last Documented On 12/29/2013 11:49AM By EMMETT ANGEL MD ; [facility] Loestrin 24 Fe 1-20 MG-MCG OR TABS 01/29/2012 - 2012 Provider: EMMETT ANGEL MD Diagnosis: has rx savings card Last Documented On 01/29/2012 1:31PM By EMMETT ANGEL MD ; [facility] Ultram 50 MG OR TABS 01/22/2012 - 02/01/2012 Provider: EMMETT ANGEL MD Diagnosis: i-ii po Q6 hours prn pain Last Documented On 01/22/2012 11:03AM By EMMETT ANGEL MD ; [facility] Nystatin-Triamcinolone 43351 0-0.1 UNIT/GM-% EX CREA 06/15/2011 - 06/25/2011 Provider: EMMETT ANGEL MD Diagnosis: Apply to affected area bid Last Documented On 06/15/2011 1:59PM By EMMETT ANGEL MD ; [facility] Terazol 7 0.4% [place] CREA 05/07/2011 - 06/06/2011 Provide r: REJI MIRANDA-BC Diagnosis: Insert vaginally q hs x 7 nocs Last Documented On 1 10:11AM By REJI MIRANDA-BC ; [facility] Triveen-Duo DHA 29-1-200 & 4 00 MG OR MISC 02/16/2011 - 11/13/2011 Provider: EMMETT ANGEL MD Diagnosis: please give one on free list if this isn't one, thanks Last Documented On 02/16/2011 3:13PM By EMMETT ANGEL MD ; [facility] Medications Administered Includes: Administered Medications from [...] 12/12/2011 Last Documented On 7 2:23PM ; [facility] Family history of hypercholesterolemia f ather 12/12/2011 Last Documented On 7 2:23PM ; [facility] Family history of hypertension father Last Documented On 7 2:23PM ; [facility] Family history unchanged 12/12/2011 Last Documented On 7 2:23PM ; [facility] Family medical history of high blood pre ssure 02/16/2011 Last Documented On 7 2:23PM ; [facility] Review of Systems Includes: Review of [...]
--- OUTSIDE RECORDS SUMMARY | 2024-12-30 09:17 | XMS_ITS | Clinical Summary ---
Author Organization [facility] Address [address] [place] [address] Phone Care Team Providers Care Electrical Designer Name Role Phone ROSE FIELDS DO Unavailable [phone] Reason for Visit and Chief Complaint * [...] 08/02/2017 9:30AM By Viktoriya Rodriguez MA ; [facility] EQ Complete Multivitamin-Adult Oral Tablet 04/15/2017 Provider: Diagnosis: Last Documented On 7 11:24AM By ABIGAIL FRAGA ; [facility] Xanax 0.25 MG Tablet 07/24/2016 Provider: Diagnosis: Last Documented On 6 9:06AM By ABIGAIL FRAGA ; [facility] Medications Administered Includes: Administered [...]
--- OUTSIDE RECORDS SUMMARY | 2024-12-30 09:18 | XMS_ITS | Clinical Summary ---
Author Organization [facility] Address [address] [place] [address] Phone Care Team Providers Care .Net Architect Name Role Phone ROSE FIELDS DO Unavailable [phone] Reason for Visit and Chief Complaint The [...] - Last Documented On 04/15/2017 11:56AM ; [facility] Education and Decision Aids were provided during visit for: Patient counseling : Use of oral contraceptives discussed in detail including rare occurrence of heart attack, stroke, and leg clots. Patient understands that smoking increases the risk of serious side effects with any steroid-based contraceptive method Last Documented On 11:50AM ; [facility] Assessments Includes: Assessments from this encounter Findings - Female pelvic pain - Last Documented On 04/15/2017 11:56AM ; [facility] - Menorrhagia - Last Documented On 04/15/2017 11:56AM ; [facility] Instructions Includes: Instructions from this encounter Education and Decision Aids were provided during visit for: Patient counseling : Use of oral contraceptives discussed in detail including rare occurrence of heart attack, stroke, and leg clots. Patient understands that smoking increases the risk of serious side effects with any steroid-based contraceptive method Last Documented On 7 11:50AM ; [facility] Medical Equipment - Implanted Devices Includes: Current [...] first Saturday after next period begins Pharmacy: [facility] [address] , [facility], [id number] - Last Documented On 7 9:25AM By ABIGAIL FRAGA ; [facility] Current Medications (continue as prescribed) flagyl 500mg Oral Tablet 08/02/2017 Provider: Diagnosis: BID X7 days no r/f Last Documented On 08/02/2017 9:30AM By Viktoriya Rodriguez MA ; [facility] EQ Complete Multivitamin-Adult Oral Tablet 04/15/2017 Provider: Diagnosis: Last Documented On 7 11:24AM By ABIGAIL FRAGA ; [facility] Xanax 0.25 MG Tablet 07/24/2016 Provider: Diagnosis: Last Documented On 6 9:06AM By ABIGAIL FRAGA ; [facility] Past Medications on file Bactrim DS 800-160 MG OR TABS 01/12/2014 - 01/15/2014 Provider: EMMETT ANGEL MD Diagnosis: Last Documented On 01/12/2014 4:39PM By EMMETT ANGEL MD ; [facility] [place] 5-325 MG OR TABS 12/29/2013 - 01/03/2014 Provide r: EMMETT ANGEL MD Diagnosis: Last Documented On 12/29/2013 11:49AM By EMMETT ANGEL MD ; [facility] Loestrin 24 Fe 1-20 MG-MCG OR TABS 01/29/2012 - 2012 Provider: EMMETT ANGEL MD Diagnosis: has rx savings card Last Documented On 01/29/2012 1:31PM By EMMETT ANGEL MD ; [facility] Ultram 50 MG OR TABS 01/22/2012 - 02/01/2012 Provider: EMMETT ANGEL MD Diagnosis: i-ii po Q6 hours prn pain Last Documented On 01/22/2012 11:03AM By EMMETT ANGEL MD ; [facility] Nystatin-Triamcinolone 27034 0-0.1 UNIT/GM-% EX CREA 06/15/2011 - 06/25/2011 Provider: EMMETT ANGEL MD Diagnosis: Apply to affected area bid Last Documented On 06/15/2011 1:59PM By EMMETT ANGEL MD ; [facility] Terazol 7 0.4% [place] CREA 05/07/2011 - 06/06/2011 Provide r: REJI MIRANDA-BC Diagnosis: Insert vaginally q hs x 7 nocs Last Documented On 1 10:11AM By REJI MIRANDA-BC ; [facility] Triveen-Duo DHA 29-1-200 & 4 00 MG OR MISC 02/16/2011 - 11/13/2011 Provider: EMMETT ANGEL MD Diagnosis: please give one on free list if this isn't one, thanks Last Documented On 02/16/2011 3:13PM By EMMETT ANGEL MD ; [facility] Medications Administered Includes: Administered Medications from this encounter No Administered Medications Recorded Vital Signs Includes: Vital Signs from this encounter Vital Name 04/15/2017 11:21A 04/15/2017 11: 19A Blood Pressure Sitting (mmHg) 118/74 Pulse Rate-Sitting (bpm) 72 Height (in) 65 65 Weight (lb) 256.4 Body Mass Index (kg/m2) 42.7 Body Surface Area (m2) 2.2 Last Documented: On 04/15/2017 11:26A M ; [facility] On 04/15/2017 11:20AM ; [facility] Results Includes: Results discussed during [...] 04/15/2017 Last Documented On 7 11:56AM ; [facility] Cigarette smoking quit a couple years ag o 04/15/2017 Last Documented On 7 11:56AM ; [facility] Non-smoker 04/15/2017 Last Documented On 7 11:56AM ; [facility] Sexually active 04/15/2017 Last Documented On 7 11:56AM ; [facility] Smoking status : Former smoker Last Documented On 7 11:56AM ; [facility] Procedures and Surgical History Includes: Procedures from this encounter Procedures Code Diagnosis Performing Provider Service L ocation Service Date Treatment options discussed including medical management, endometrial ablation, and hysterectomy Last Documented On 7 11:50AM ; [facility] Clinical summary provided to patient Last Documented On 7 11:50AM ; [facility] Surgical History Last Updated History of tubal ligation 04/15/2017 Last Documented On 7 11:56AM ; [facility] Medical History Includes: Medical History addressed during this encounter Description Last Updated LMP: 03/24/2017 04/15/2017 Last Documented On 7 11:56AM ; [facility] Aborta 1 04/15/2017 Last Documented On 7 11:56AM ; [facility] Contraception: tubal 04/15/2017 Last Documented On 7 11:56AM ; [facility] 4 04/15/2017 Last Documented On 7 11:56AM ; [facility] Last mammogram date: 12/05/2016 7 Last Documented On 7 11:56AM ; [facility] Last pap smear date 06/01/2014 04/15/2017 Last Documented On 7 11:56AM ; [facility] Para 3 04/15/2017 Last Documented On 7 11:56AM ; [facility] Family History Includes: Family History addressed during this encounter Description Last Updated Spouse name: brandee 12/12/2011 Last Documented On 7 11:19AM ; [facility] Family history of hypercholesterolemia f ather 12/12/2011 Last Documented On 7 11:19AM ; [facility] Family history of hypertension father Last Documented On 7 11:19AM ; [facility] Family history unchanged 12/12/2011 Last Documented On 7 11:19AM ; [facility] Family medical history of high blood pre ssure 02/16/2011 Last Documented On 7 11:19AM ; [facility] Review of Systems Includes: Review of Systems [...] Check-Out Time Diagnosis CONSULTATION EMMETT ANGEL MD [facility] CARDIOPULMONARY PHYSICAL THERAPIST 04/15/20 17 11:16AM 11:49AM Menorrhagia,F emale Pelvic Pain Clinical Notes Includes: Clinical Notes from this encounter No Clinical Notes Recorded
--- OUTSIDE RECORDS SUMMARY | 2024-12-30 09:18 | XMS_ITS | Clinical Summary ---
Author Organization [facility] Address [address] [place] [address] Phone Care Team Providers Care Environmental Restoration Planner Name Role Phone ROSE FIELDS DO Unavailable [phone] Reason for Visit and Chief Complaint The [...] - Last Documented On 07/30/2017 10:02AM ; [facility] Instructions to patient Instructions for patient : B reast Self Exam discussed Last Documented On 7 9:30AM ; [facility] Education and Decision Aids were provided during visit for: STD screening offered and de clined Last Documented On 7 9:30AM ; [facility] Assessments Includes: Assessments from this encounter Findings - Routine pelvic exam - Last Documented On 07/30/2017 10:02AM ; [facility] Instructions Includes: Instructions from this encounter Instructions to patient Instructions for patient : B reast Self Exam discussed Last Documented On 7 9:30AM ; [facility] Education and Decision Aids were provided during visit for: STD screening offered and de clined Last Documented On 7 9:30AM ; [facility] Medical Equipment - Implanted Devices Includes: Current Devices No Medical Equipment Recorded Medications Includes: Medications discussed during this encounter and other current Medications Discontinued / Stopped on this date EMMETT ANGEL MD on 04/15/2017 Levonorgest-Eth Estrad 91-Da y 0.1-0.02 & 0.01MG Oral Tablet Provider: EMMETT ANGEL MD Diagnosis: Last Documented On 7 9:25AM By ABIGAIL FLORES Giovanna ; [facility] Current Medications (continue as prescribed) flagyl 500mg Oral Tablet 08/02/2017 Provider: Diagnosis: BID X7 days no r/f Last Documented On 08/02/2017 9:30AM By Viktoriya Rodriguez MA ; [facility] EQ Complete Multivitamin-Adult Oral Tablet 04/15/2017 Provider: Diagnosis: Last Documented On 7 11:24AM By ABIGAIL FRAGA ; [facility] Xanax 0.25 MG Tablet 07/24/2016 Provider: Diagnosis: Last Documented On 6 9:06AM By ABIGAIL FLORES Giovanna ; [facility] Past Medications on file Bactrim DS 800-160 MG OR TABS 01/12/2014 - 01/15/2014 Provider: EMMETT ANGEL MD Diagnosis: Last Documented On 01/12/2014 4:39PM By EMMETT ANGEL MD ; [facility] F[place] 5-325 MG OR TABS 12/29/2013 - 01/03/2014 Provide r: EMMETT ANGEL MD Diagnosis: Last Documented On 12/29/2013 11:49AM By EMMETT ANGEL MD ; [facility] Loestrin 24 Fe 1-20 MG-MCG OR TABS 01/29/2012 - 2012 Provider: EMMETT ANGEL MD Diagnosis: has rx savings card Last Documented On 01/29/2012 1:31PM By EMMETT ANGEL MD ; [facility] Ultram 50 MG OR TABS 01/22/2012 - 02/01/2012 Provider: EMMETT ANGEL MD Diagnosis: i-ii po Q6 hours prn pain Last Documented On 01/22/2012 11:03AM By EMMETT ANGEL MD ; [facility] Nystatin-Triamcinolone 44303 0-0.1 UNIT/GM-% EX CREA 06/15/2011 - 06/25/2011 Provider: EMMETT ANGEL MD Diagnosis: Apply to affected area bid Last Documented On 06/15/2011 1:59PM By EMMETT ANGEL MD ; [facility] Terazol 7 0.4% VA CREA 05/07/2011 - 06/06/2011 Provide r: REJI MIRANDA-BC Diagnosis: Insert vaginally q hs x 7 nocs Last Documented On 1 10:11AM By REJI MIRANDA-BC ; [facility] Triveen-Duo DHA 29-1-200 & 4 00 MG OR MISC 02/16/2011 - 11/13/2011 Provider: EMMETT ANGEL MD Diagnosis: please give one on free list if this isn't one, thanks Last Documented On 02/16/2011 3:13PM By EMMETT ANGEL MD ; [facility] Medications Administered Includes: Administered Medications from this encounter No Administered Medications Recorded Vital Signs Includes: Vital Signs from this encounter Vital Name 07/30/2017 09:22A 07/30/2017 09: 21A Blood Pressure Sitting (mmHg) 138/80 Pulse Rate-Sitting (bpm) 68 Height (in) 65 65 Weight (lb) 261.6 Body Mass Index (kg/m2) 43.5 Body Surface Area (m2) 2.2 Last Documented: On 07/30/2017 9:27AM ; [facility] On 07/30/2017 9:21AM ; [facility] Results Includes: Results discussed during this encounter No Results Recorded For Specified Dates History of Present Illness Includes: History of Present Illness from this encounter DIPAK CAMERON is a 32 year old female. - No unusual bleeding periods have been better just once a month lasting about 6 days, first 3 are heavy then rf manager. She tried OCP for a bit but couldn't remember it daily so she stopped. - No pelvic pain. - Vaginal discharge and itching. Social History Description Last Updated In monogamous relationship 07/30/2017 Last Documented On 7 10:02AM ; [facility] Smoking status : Former smoker 7 Last Documented On 7 10:02AM ; [facility] Procedures and Surgical History Includes: Procedures from this encounter Procedures Code Diagnosis Performing Provider Service L ocation Service Date Clinical summary provided to patient Last Documented On 7 9:29AM ; [facility] cervical Pap smear 17757 Last Documented On 7 9:30AM ; [facility] Medical History Includes: Medical History addressed during this encounter Description Last Updated LMP: 07/15/2017 07/30/2017 Last Documented On 7 10:02AM ; [facility] Aborta 1 07/30/2017 Last Documented On 7 10:02AM ; [facility] Contraception: tubal 07/30/2017 Last Documented On 7 10:02AM ; [facility] 4 07/30/2017 Last Documented On 7 10:02AM ; [facility] Last mammogram date: 12/05/2016 7 Last Documented On 7 10:02AM ; [facility] Last pap smear date 06/01/2014 07/30/2017 Last Documented On 7 10:02AM ; [facility] Para 3 07/30/2017 Last Documented On 7 10:02AM ; [facility] Status post tubal ligation 07/30/2017 Last Documented On 7 10:02AM ; [facility] Family History Includes: Family History addressed during this encounter Description Last Updated Spouse name: brandee 12/12/2011 Last Documented On 7 9:21AM ; [facility] Family history of hypercholesterolemia f ather 12/12/2011 Last Documented On 7 9:21AM ; [facility] Family history of hypertension father Last Documented On 7 9:21AM ; [facility] Family history unchanged 12/12/2011 Last Documented On 7 9:21AM ; [facility] Family medical history of high blood pre ssure 02/16/2011 Last Documented On 7 9:21AM ; [facility] Review of Systems Includes: Review [...] Location Date Check-In Time Check-Out Time Diagnosis CLIENT SERVICE ADMINISTRATOR EXAM EMMETT ANGEL MD [facility] 7 9:21AM 10:01AM Routine Pelvic Exam Clinical Notes Includes: Clinical Notes from this encounter No Clinical Notes Recorded
--- OUTSIDE RECORDS SUMMARY | 2024-12-30 09:18 | XMS_ITS ---
Care Plan - [facility] Created on: December 30, 2024 TRAVIS CAMERON : 1985 Sex: Female Author Organization [facility] Address [address] [place] [address] Phone Care Team Providers Care Police And Fire Dispatcher Name Role Phone ROSE FIELDS DO Unavailable [phone]
--- OUTSIDE RECORDS SUMMARY | 2024-12-30 09:18 | XMS_ITS ---
Author Organization [facility] Address [address] [place] [address] Phone Care Team Providers Care Director Of Pediatric Rehabilitation Name Role Phone ROSE FIELDS DO Panfilo Unavailable [phone] Plan of Treatment Findings Encounter Date Ordered Clinical summary pro vided to patient RETURN OB EXAM with REJI REHMAN [facility] 09/23/2013 Last Documented On 3 2:57PM ; [facility] Ordered Clinical summary pro vided to patient RETURN OB EXAM with REJI REHMAN [facility] 08/27/2013 Last Documented On 3 1:51PM ; [facility] Ordered Clinical summary pro vided to patient RETURN OB EXAM with REJI REHMAN NP-BC 07/29/2013 Last Documented On 3 2:58PM ; [facility] Ordered Clinical summary pro vided to patient RETURN OB EXAM with REJI REHMAN NP-BC 06/18/2013 Last Documented On 3 9:45AM ; [facility] Ordered Clinical summary pro vided to patient RETURN OB EXAM with REJI REHMAN NP-BC 04/09/2013 Last Documented On 3 3:34PM ; [facility] D/W pt. that coitus interrup tus is not a reliable method for contraception. Declines all other methods and states does not mind if she gets again. Advised to continue pnv [employer] EXAM with REJI REHMAN NP-BC 12/12/2011 Last Documented On 2 1:15PM ; [facility] Instructions to patient Instructions for patient : B reast Self Exam discussed Last Documented On 7 9:30AM ; [facility] Instructions for patient : B reast Self Exam discussed Last Documented On 6 9:23AM ; [facility] Instructions for patient : b reast self exam. Patient to come in for appointment if lump or other changes are felt Last Documented On 6 11:42AM ; [facility] Instructions for patient : B reast Self Exam discussed Last Documented On 5 8:25AM ; [facility] Instructions for patient : B reast Self Exam discussed Last Documented On 4 8:31AM ; [facility] Instructions for patient : B reast Self Exam discussed Last Documented On 2 12:57PM ; [facility] Lose weight Last Documented On 2 12:58PM ; [facility] Safe sex counseling Last Documented On 2 12:58PM ; [facility] Education and Decision Aids were provided during visit for: STD screening offered and de clined Last Documented On 7 9:30AM ; [facility] Patient counseling : Use of oral contraceptives discussed in detail including rare occurrence of heart attack, stroke, and leg clots. Patient understands that smoking increases the risk of serious side effects with any steroid-based contraceptive method Last Documented On 7 11:50AM ; [facility] STD screening offered and de clined Last Documented On 6 9:23AM ; [facility] STD screening offered and de clined Last Documented On 5 8:25AM ; [facility] STD screening offered and de clined Last Documented On 4 8:31AM ; [facility] Patient Education: Daily shala cium and vitamin D Last Documented On 2 12:57PM ; [facility] Patient Education: weight be aring exercise Last Documented On 2 12:57PM ; [facility] control consent review ed and signed Last Documented On 2 12:58PM ; [facility] Assessments Includes: Assessments for all patient encounters Findings Encounter Date Routine pelvic exam [employer] EXAM with EMMETT ANGEL MD 07/30/2017 Last Documented On 7 10:02AM ; [facility] Female pelvic pain CONSULTATION with EMMETT YANES MD 04/15/2017 Last Documented On 7 11:56AM ; [facility] Menorrhagia CONSULTATION with EMMETT ANGEL MD 04/15/2017 Last Documented On 7 11:56AM ; [facility] Routine pelvic exam [employer] EXAM with EMMETT ANGEL MD 07/24/2016 Last Documented On 6 9:37AM ; [facility] Mastodynia of right breast CONSULTATION with NORRIS ANGEL MD 11/21/2015 Last Documented On 6 11:46AM ; [facility] Menorrhagia CONSULTATION with EMMETT ANGEL MD 11/21/2015 Last Documented On 6 11:46AM ; [facility] Routine pelvic exam [employer] EXAM with EMMETT ANGEL MD 06/21/2015 Last Documented On 5 8:36AM ; [facility] Menorrhagia PROBLEM VISIT with EMMETT ANGEL MD 12/20/2014 Last Documented On 5 3:36PM ; [facility] Ovarian cyst [employer] EXAM with EMMETT ANGEL MD 0 06/01/2014 Last Documented On 4 8:45AM ; [facility] Routine pelvic exam [employer] EXAM with EMMETT ANGEL MD 06/01/2014 Last Documented On 4 8:45AM ; [facility] Normal checkup (6 - 42 wk) RETURN OB EX AM with EMMETT ANGEL MD 10/08/2013 Last Documented On 3 2:01PM ; [facility] Normal checkup (6 - 42 wk) RETURN OB EX AM with EMMETT ANGEL MD 10/02/2013 Last Documented On 3 11:26AM ; [facility] Normal checkup (6 - 42 wk) RETU RN OB EXAM with REJI MIRANDA-GLORIA 09/23/2013 Last Documented On 3 2:57PM ; [facility] Normal checkup (6 - 42 wk) RETURN OB EX AM with EMMETT ANGEL MD 09/08/2013 Last Documented On 3 3:17PM ; [facility] Normal checkup (6 - 42 wk) [Pat ient Encounter] with REJI Heredia SHERIE MIRANDA- 09/07/2013 Last Documented On 3 1:26PM ; [facility] Normal checkup (6 - 42 wk) * PHONE CALL with EMMETT ANGEL MD 08/31/2013 Last Documented On 3 2:21PM ; [facility] Normal checkup (6 - 42 wk) RETU RN OB EXAM with REJI REHMAN BIJU- 08/27/2013 Last Documented On 3 1:51PM ; [facility] Normal checkup (6 - 42 wk) RETURN OB EX AM with EMMETT ANGEL MD 08/13/2013 Last Documented On 3 2:06PM ; [facility] Normal checkup (6 - 42 wk) [Pat ient Encounter] with EMMETT ANGEL MD 07/31/2013 Last Documented On 3 1:19PM ; [facility] Normal checkup (6 - 42 wk) [Pat ient Encounter] with REJI Heredia SHERIE BIJU- 07/30/2013 Last Documented On 3 9:28AM ; [facility] Normal checkup (6 - 42 wk) RETU RN OB EXAM with REJI Heredia SHERIE BIJU- 07/29/2013 Last Documented On 3 2:58PM ; [facility] Normal checkup (6 - 42 wk) RETURN OB EX AM with EMMETT ANGEL MD 07/15/2013 Last Documented On 3 11:08AM ; [facility] Normal checkup (6 - 42 wk) [Pat ient Encounter] with EMMETT ANGEL MD 06/23/2013 Last Documented On 3 1:38PM ; [facility] Normal checkup (6 - 42 wk) RETU RN OB EXAM with REJI A SHERIE BIJU-BC 06/18/2013 Last Documented On 3 9:45AM ; [facility] Normal checkup (6 - 42 wk) * PHONE CALL with EMMETT ANGEL MD 06/16/2013 Last Documented On 3 9:51AM ; [facility] Normal checkup (6 - 42 wk) RETURN OB EX AM with EMMETT ANGEL MD 05/21/2013 Last Documented On 3 3:38PM ; [facility] Normal checkup (6 - 42 wk) RETURN OB EX AM with EMMETT ANGEL MD 05/08/2013 Last Documented On 3 8:43AM ; [facility] Normal checkup (6 - 42 wk) * PH ONE CALL with REJI REHMAN [facility] 04/28/2013 Last Documented On 3 10:22AM ; [facility] complications - an tepartum condition or prior complicated delivery RETURN OB EXAM with CLARISA CARRERA RN [facility] 04/28/2013 Last Documented On 3 4:38PM ; [facility] Normal checkup (6 - 42 wk) RETU RN OB EXAM with REJI REHMAN [facility] 04/09/2013 Last Documented On 3 3:34PM ; [facility] Normal checkup (6 - 42 wk) NEW OB EXAM with EMMETT ANGEL MD 03/10/2013 Last Documented On 3 1:34PM ; [facility] Tubal PROBLEM VISIT with EMMETT AGNEL MD 01/29/2012 Last Documented On 2 1:33PM ; [facility] NORMAL FEMALE EXAM [employer] EXAM with REJI Giron [facility] 12/12/2011 Last Documented On 2 1:15PM ; [facility] Nausea POST VISIT with EMMETT LÓPEZ MD 08/28/2011 Last Documented On 1 9:50AM ; [facility] Normal checkup (6 - 42 wk) RETURN OB EX AM with EMMETT ANGEL MD 06/29/2011 Last Documented On 1 2:48PM ; [facility] Normal checkup (6 - 42 wk) RETURN OB EX AM with EMMETT ANGEL MD 06/22/2011 Last Documented On 1 1:10PM ; [facility] Normal checkup (6 - 42 wk) * PHONE CALL with EMMETT ANGEL MD 06/21/2011 Last Documented On 1 2:09PM ; [facility] Normal checkup (6 - 42 wk) RETURN OB EX AM with EMMETT ANGEL MD 06/15/2011 Last Documented On 1 2:00PM ; [facility] Normal checkup (6 - 42 wk) [Pat ient Encounter] with EMMETT ANGEL MD 06/08/2011 Last Documented On 1 11:45AM ; [facility] Normal checkup (6 - 42 wk) RETU RN OB EXAM [facility] 06/07[facility]2011 Last Documented On 1 3:24PM ; [facility] Normal checkup (6 - 42 wk) RETURN OB EX AM with EMMETT ANGEL MD 05/22/2011 Last Documented On 1 4:29PM ; [facility] Normal checkup (6 - 42 wk) * PHONE CALL with EMMETT ANGEL MD 05/16/2011 Last Documented On 2 12:05PM ; [facility] Normal checkup (6 - 42 wk) [Pat ient Encounter] with [facility] 05/11/2011 Last Documented On 1 10:37AM ; [facility] Normal checkup (6 - 42 wk) RETU RN OB EXAM [facility] 05/07/2011 Last Documented On 1 9:55AM ; [facility] Normal checkup (6 - 42 wk) RETURN OB EX AM with EMMETT ANGEL MD 04/23/2011 Last Documented On 1 3:22PM ; [facility] Normal checkup (6 - 42 wk) * PHONE CALL with EMMETT ANGEL MD 04/19/2011 Last Documented On 1 4:08PM ; [facility] Normal checkup (6 - 42 wk) RETURN OB EX AM with EMMETT ANEGL MD 04/05/2011 Last Documented On 1 8:51AM ; [facility] Normal checkup (6 - 42 wk) RETURN OB EX AM with EMMETT ANGEL MD 03/15/2011 Last Documented On 1 2:01PM ; [facility] Normal checkup (6 - 42 wk) [Pat ient Encounter] with EMMETT ANGEL MD 02/22/2011 Last Documented On 1 8:58AM ; [facility] Normal checkup (6 - 42 wk) NEW OB EXAM with EMMETT ANGEL MD 02/16/2011 Last Documented On 1 3:18PM ; [facility] Instructions Includes: Instructions for all patient encounters Instructions to patient Instructions for patient : B reast Self Exam discussed Last Documented On 7 9:30AM ; [facility] Instructions for patient : B reast Self Exam discussed Last Documented On 6 9:23AM ; [facility] Instructions for patient : b reast self exam. Patient to come in for appointment if lump or other changes are felt Last Documented On 6 11:42AM ; [facility] Instructions for patient : B reast Self Exam discussed Last Documented On 5 8:25AM ; [facility] Instructions for patient : B reast Self Exam discussed Last Documented On 4 8:31AM ; [facility] Instructions for patient : B reast Self Exam discussed Last Documented On 2 12:57PM ; [facility] Lose weight Last Documented On 2 12:58PM ; [facility] Safe sex counseling Last Documented On 2 12:58PM ; [facility] Education and Decision Aids were provided during visit for: STD screening offered and de clined Last Documented On 7 9:30AM ; [facility] Patient counseling : Use of oral contraceptives discussed in detail including rare occurrence of heart attack, stroke, and leg clots. Patient understands that smoking increases the risk of serious side effects with any steroid-based contraceptive method Last Documented On 7 11:50AM ; [facility] STD screening offered and de clined Last Documented On 6 9:23AM ; [facility] STD screening offered and de clined Last Documented On 5 8:25AM ; [facility] STD screening offered and de clined Last Documented On 4 8:31AM ; [facility] Patient Education: Daily shala cium and vitamin D Last Documented On 2 12:57PM ; [facility] Patient Education: weight be aring exercise Last Documented On 2 12:57PM ; [facility] control consent review ed and signed Last Documented On 2 12:58PM ; [facility] Medical Equipment - Implanted Devices Includes: Current and historical Devices No Medical Equipment Recorded Medications Includes: Current and historical Medications Current Medications (continue as prescribed) flagyl 500mg Oral Tablet 08/02/2017 Provider: Diagnosis: BID X7 days no r/f Last Documented On 08/02/2017 9:30AM By Viktoriya Rodriguez MA ; [facility] EQ Complete Multivitamin-Adult Oral Tablet 04/15/2017 Provider: Diagnosis: Last Documented On 7 11:24AM By ABIGAIL FRAGA ; [facility] Xanax 0.25 MG Tablet 07/24/2016 Provider: Diagnosis: Last Documented On 6 9:06AM By ABIGAIL FRAGA ; [facility] Past Medications on file Levonorgest-Eth Estrad 91-Da y 0.1-0.02 & 0.01MG Oral Tablet 04/15/2017 - 07/30/2017 Provider: EMMETT ANGEL MD Diagnosis: One tablet daily starting on first Saturday after next period begins Last Documented On 7 9:25AM By ABIGAIL FRAGA ; [facility] MedroxyPROGESTERone Acetate 150 MG/ML Suspension 11/21/2015 - 07/24/2016 Provider: EMMETT ANGEL MD Diagnosis: i prefilled syringe for IM injection Last Documented On 6 9:05AM By ABIGAIL FRAGA ; [facility] MedroxyPROGESTERone Acetate 150 MG/ML Suspension 12/20/2014 - 11/21/2015 Provider: EMMETT ANGEL MD Diagnosis: i prefilled syringe for IM injection Last Documented On 11/21/2015 11:43AM By EMMETT ANGEL MD ; [facility] Junel FE 1.5 1.5-30 MG-MC G OR TABS 06/01/2014 - 12/20/2014 Provider: EMMETT ANGEL MD Diagnosis: Last Documented On 12/20/2014 3:02PM By TITA FRAGA ; [facility] Bactrim DS 800-160 MG OR TABS 01/12/2014 - 01/15/2014 Provider: EMMETT ANGEL MD Diagnosis: Last Documented On 01/12/2014 4:39PM By EMMETT ANGEL MD ; [facility] [place] 5-325 MG OR TABS 12/29/2013 - 01/03/2014 Provide r: EMMETT ANGEL MD Diagnosis: Last Documented On 12/29/2013 11:49AM By EMMETT ANGEL MD ; [facility] Junel FE 1.5 1.5-30 MG-MCG OR TABS 12/25/2013 - Provider: Diagnosis: Last Documented On 06/01/2014 8:42AM By EMMETT ANGEL MD ; [facility] Complete-RF 90-1 MG OR TABS 10/16/2013 - 11/14 Provider: Diagnosis: Last Documented On 11/24/2013 3:53PM By MOON JONES ; [facility] Procardia XL 30 MG OR TB24 10/02/2013 - 11/24/2013 Pro vider: EMMETT ANGEL MD Diagnosis: Last Documented On 11/24/2013 3:53PM By MOON JONES ; [facility] Ferrous Sulfate 325 (65 Fe) MG OR TBEC 07/16/2013 - Provider: Diagnosis: 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 Last Documented On 11/24/2013 3:53PM By MOON JONES ; [facility] Procardia XL 30 MG OR TB24 05/08/2013 - 10/02/2013 Pro vider: EMMETT ANGEL MD Diagnosis: Last Documented On 10/02/2013 11:24AM By EMMETT ANGEL MD ; [facility] Triveen-Duo DHA 29-1-200 & 4 00 MG OR MISC 03/10/2013 - 10/16/2013 Provider: EMMETT ANGEL MD Diagnosis: Please substitute free PNV if this isn't one, th anks Last Documented On 10/16/2013 9:56AM By MIKAYLA LANGSTON LPN ; [facility] Loestrin 24 Fe 1-20 MG-MCG OR TABS 01/29/2012 - 2012 Provider: EMMETT ANGEL MD Diagnosis: has rx savings card Last Documented On 01/29/2012 1:31PM By EMMETT ANGEL MD ; [facility] Ultram 50 MG OR TABS 01/22/2012 - 02/01/2012 Provider: EMMETT ANGEL MD Diagnosis: i-ii po Q6 hours prn pain Last Documented On 01/22/2012 11:03AM By EMMETT ANGEL MD ; [facility] Loestrin 24 Fe 1-20 MG-MCG OR TABS 07/23/2011 - 2011 Provider: EMMETT ANGEL MD Diagnosis: Start Sunday 08/05 please (M ay substitute if not covered well) Last Documented On 12/12/2011 1:02PM By HALIE FRAGA ; [facility] Nystatin-Triamcinolone 88941 0-0.1 UNIT/GM-% EX CREA 06/15/2011 - 06/25/2011 Provider: EMMETT ANGEL MD Diagnosis: Apply to affected area bid Last Documented On 06/15/2011 1:59PM By EMMETT ANGEL MD ; [facility] Terazol 7 0.4% VA CREA 05/07/2011 - 06/06/2011 Provide r: REJI MIRANDA-BC Diagnosis: Insert vaginally q hs x 7 nocs Last Documented On 1 10:11AM By REJI MIRANDA-BC ; [facility] Triveen-Duo DHA 29-1-200 & 4 00 MG OR MISC 02/16/2011 - 11/13/2011 Provider: EMMETT ANGEL MD Diagnosis: please give one on free list if this isn't one, thanks Last Documented On 02/16/2011 3:13PM By EMMETT ANGEL MD ; [facility] Medications Administered Includes: Administered Medications in patient's chart Medications Administered Diagnosis Date Pro vider Fluzone Preservative Free IM SUSP VACCIN FOR INFLUENZA 07/29/2013 REJI REHMAN [facility]- [facility] Last Documented On 3 2:48PM By HALIE FRAGA ; [facility] medroxyPROGESTERone Acetate 150 MG/ML IM SUSP 12/27/2014 EMMETT ANGEL MD left glut - pt tolerated well Last Documented On 5 9:19AM By TITA FRAGA ; [facility] Results Includes: Results from 12/31/2023 through 12/30/2024 No Results Recorded For Specified Dates History of Present Illness History of Present Illness not supported for this document type No History of Present Illness Recorded Social History Description Last Updated In monogamous relationship 07/30/2017 Last Documented On 7 10:02AM ; [facility] Smoking status : Former smoker 7 Last Documented On 7 10:02AM ; [facility] Non-smoker 04/15/2017 Last Documented On 7 11:56AM ; [facility] Procedures and Surgical History Surgical History Last Updated History of tubal ligation 04/15/2017 Last Documented On 7 11:56AM ; [facility] Surgical / procedural history left foot 2013 12/20/2014 Last Documented On 5 3:36PM ; [facility] History of surgery left foot surg 2012 Last Documented On 3 2:57PM ; [facility] Medical History Includes: Medical History in patient's chart Description Last Updated LMP: 07/15/2017 07/30/2017 Last Documented On 7 10:02AM ; [facility] Aborta 1 07/30/2017 Last Documented On 7 10:02AM ; [facility] Contraception: tubal 07/30/2017 Last Documented On 7 10:02AM ; [facility] 4 07/30/2017 Last Documented On 7 10:02AM ; [facility] Last mammogram date: 12/05/2016 7 Last Documented On 7 10:02AM ; [facility] Last pap smear date 06/01/2014 07/30/2017 Last Documented On 7 10:02AM ; [facility] Para 3 07/30/2017 Last Documented On 7 10:02AM ; [facility] Status post tubal ligation 07/30/2017 Last Documented On 7 10:02AM ; [facility] 1 living children 09/23/2013 Last Documented On 3 2:57PM ; [facility] weight: 6lb 14 oz 09/23/2013 Last Documented On 3 2:57PM ; [facility] section 09/23/2013 Last Documented On 3 2:57PM ; [facility] Delivery date 09/23/2013 Last Documented On 3 2:57PM ; [facility] Duration of labor: 10 09/23/2013 Last Documented On 3 2:57PM ; [facility] Gestational age: 37 09/23/2013 Last Documented On 3 2:57PM ; [facility] History of the : 1 09/23/2013 Last Documented On 3 2:57PM ; [facility] Type of delivery: LTCS 09/23/2013 Last Documented On 3 2:57PM ; [facility] Family History Includes: Family History in patient's chart Description Last Updated Spouse name: brandee 12/12/2011 Last Documented On 2 1:15PM ; [facility] Family history of hypercholesterolemia f ather 12/12/2011 Last Documented On 2 1:15PM ; [facility] Family history of hypertension father Last Documented On 2 1:15PM ; [facility] Family history unchanged 12/12/2011 Last Documented On 2 1:15PM ; [facility] Family medical history of high blood pre ssure 02/16/2011 Last Documented On 1 3:18PM ; [facility] Review of Systems Review of Systems not [...] (SD) 1 07/29/2013 Left Arm Complete (Administered) [facility] Last Documented On 3 2:49PM ; [facility] Allergies Includes: Active, inactive, and resolved Allergies No Known Allergies Clinical Notes Includes: Signed Clinical Notes starting from 11/02/2022 No Clinical Notes Recorded
== END 2024-12-30 10:12 | disposition short-term general hospital (02) ==
LOC: EXPBETH 08:45
PROVIDERS: Emergency Provider Registered Nurse; PCP Physician Assistant
DX: R10.13 Epigastric pain (principal); R00.2 Palpitations; R07.9 Chest pain, unspecified; F17.210 Nicotine dependence, cigarettes, uncomplicated; H40.9 Unspecified glaucoma
CPT/HCPCS: 93005; 99213; G0463